=== PATIENT | female | born 1960 | race Caucasian/White ===

== ENCOUNTER 2016-12-23 21:09 | Emergency (ER) | payer SELFPAY ==
[2016-12-23 21:17] VITALS: TEMP 97.6; BMI 27.4
--- NOTE | 2016-12-23 21:30 | PDOC ---
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 Patient states she has left-sided residual weakness from her previous CVA. She reports since 3 days ago she has been feeling progressively weaker, which is worse than her baseline. Patient reports she normally can ambulate, but today she was not able to walk very well and states she was dragging her left leg. No facial droop or slurred speech noted. Denies urinary/bowel incontinence or paresthesias. The patient denies fever, chills, cough, SOB, chest pain, and palpitations. The patient denies abdominal pain, nausea, vomiting, and diarrhea. Allergies: NKDA Social History: No alcohol, tobacco, or drug use reported. Past Surgical History: s/p brain tumor removal (11/2016) PCP: None reported <Susannah Paulson - Last Filed: 12/24/16 01:22> - General History Source: Patient <Asif Noriega - Last Filed: 12/24/16 01:48> - General Chief Complaint: Weakness Stated Complaint: WEAKNESS Time Seen by Provider: 12/23/16 21:27 NIH Stroke Scale - Last Known Well Date/Time & Onset Date Last Known Well: 12/21/16 Time Last Known Well: 06:00 - Initial Evaluation Level of consciousness: Alert Ask patient the month and their age: Answers both correctly Ask patient to open & close eyes; make fist and let go: Obeys both correctly Best gaze (horizontal eye movement): Normal Visual field testing: No visual field loss Facial paresis (Show teeth/raise eyebrows/close eyes tight): Normal symmetrical movement Motor Function: Left Arm: Normal Motor Function: Right Arm: Normal (extends arm 90 (or 45) degrees for 10 seconds without drift Motor Function: Left Leg: Normal (extends leg 30 degrees for 5 seconds without drift) Motor Function: Right Leg: Normal (extends leg 30 degrees for 5 seconds without drift) Limb Ataxia: No ataxia Sensory(Use pinprick test arms,legs,trunk,face/side to side): Normal Best language (Describe picture, name items, read sentences): No Aphasia Dysarthria (read several words): Normal articulation Extinction and Inattention: No abnormality - Total Score NIH Stroke Scale Score: 0 <Asif Noriega - Last Filed: 12/24/16 01:48> Past History <Margarette Paulsonvita - Last Filed: 12/24/16 01:22> - Psycho/Social/Smoking Cessation Hx Suicidal Ideation: No Smoking History: Unknown if ever smoked Have you smoked in the past 12 months: No Information on smoking cessation initiated: No Hx Alcohol Use: No Drug/Substance Use Hx: No <Asif Noriega - Last Filed: 12/24/16 01:48> - Past Medical History Allergies/Adverse Reactions: Allergies Allergy/AdvReac Type Severity Reaction Status Date / Time No Known Allergies Allergy Verified 12/23/16 21:14 Review of Systems - Review of Systems Able to Perform ROS?: Yes Comments:: 12/23/16 21:50 CONSTITUTIONAL: +generalized weakness Absent: fever, chills, diaphoresis, malaise, loss of appetite HEENT: Absent: rhinorrhea, nasal congestion, throat pain, throat swelling, difficulty swallowing, mouth swelling, ear pain, eye pain, visual Changes CARDIOVASCULAR: Absent: chest pain, syncope, palpitations, irregular heart rate, lightheadedness , peripheral edema RESPIRATORY: Absent: cough, shortness of breath, dyspnea with exertion, orthopnea, wheezing, stridor, hemoptysis GASTROINTESTINAL: Absent: abdominal pain, abdominal distension, nausea, vomiting, diarrhea, constipation, melena, hematochezia GENITOURINARY: Absent: dysuria, frequency, urgency, hesitancy, hematuria, flank pain, genital pain MUSCULOSKELETAL: Absent: myalgia, arthralgia, joint swelling SKIN: Absent: rash, itching, pallor HEMATOLOGIC/IMMUNOLOGIC: Absent: easy bleeding, easy bruising, lymphadenopathy, frequent infections ENDOCRINE: Absent: unexplained weight gain, unexplained weight loss, heat intolerance, cold intolerance NEUROLOGIC: +worsening left-sided weakness Absent: headache, focal paresthesias, dizziness, seizure, mental status changes, bladder or bowel incontinence <uSsannah Paulson - Last Filed: 12/24/16 01:22> *Physical Exam - Vital Signs Last Vital Signs Temp Pulse Resp BP Pulse Ox 97.6 F 80 18 143/74 98 12/23/16 21:15 12/23/16 21:15 12/23/16 21:15 12/23/16 21:15 12/23/16 21:15 - Physical Exam Comments: 12/23/16 21:50 GENERAL: Well developed, well nourished. Awake and alert. No acute distress. HEENT: Normocephalic, atraumatic. PERRLA, EOMI. No conjunctival pallor. Sclera are non- icteric. Moist mucous membranes. Oropharynx is clear. NECK: Supple. Full ROM. No JVD. Carotid pulses 2+ and symmetric, without bruits. No thyromegaly. No lymphadenopathy. CARDIOVASCULAR: Regular rate and rhythm. No murmurs, rubs, or gallops. Distal pulses are 2+ and symmetric. PULMONARY: No evidence of respiratory distress. Lungs clear to auscultation bilaterally. No wheezing, rales or rhonchi. ABDOMINAL: Soft. Non-tender. Non-distended. No rebound or guarding. No organomegaly. Normoactive bowel sounds. MUSCULOSKELETAL Normal range of motion at all joints. No bony deformities or tenderness. No CVA tenderness. EXTREMITIES: No cyanosis. No clubbing. No edema. No calf tenderness. SKIN: Warm and dry. Normal capillary refill. No rashes. No jaundice. NEUROLOGICAL: Alert, awake, oriented. Answering questions appropriately. Sensation intact throughout. 4/5 motor strength left upper extremity. 3/5 motor strength left lower extremity. 5/5 motor strength right upper and lower extremities. No facial droop. Normal speech. <Susannah Paulson - Last Filed: 12/24/16 01:22> - Vital Signs Last Vital Signs Temp Pulse Resp BP Pulse Ox 97.6 F 80 18 143/74 98 12/23/16 21:15 12/23/16 21:15 12/23/16 21:15 12/23/16 21:15 12/23/16 21:15 <Asif Noriega - Last Filed: 12/24/16 01:48> Heart Score/ECG Review - ECG Impressions Comment:: 12/23/16 23:26 NSR @61bpm Normal ECG <Susannah Paulson - Last Filed: 12/24/16 01:22> ED Treatment Course - LABORATORY CBC & Chemistry Diagram: 12/23/16 22:33 12/23/16 22:33 - RADIOLOGY Radiograph Interpretation: 12/24/16 01:13 EXAM: CT brain without contrast Reviewed by Imaging neon installer: FINDINGS: Patient has had a right frontal craniotomy. There is a large amount of vasogenic edema involving portions of the right frontal and parietal lobes. This is most likely from an underlying neoplasm (this may have been the reason for the craniotomy). The extensive edema causes mass effect and result in a soft ball seen shift to the left of approximately 6 mm. There are one or 2 tiny hyperdensities within the mass. Difficult to determine if this represents compressed cortex or tiny foci of tumoral hemorrhage. I do not have prior scans and therefore I cannot determine whether the edema is stable. If prior scans can be transmitted, I can perform a comparative interpretation. Osseous structures are intact <Susannah Paulson - Last Filed: 12/24/16 01:22> - LABORATORY CBC & Chemistry Diagram: 12/23/16 22:33 12/23/16 22:33 <Asif Noriega - Last Filed: 12/24/16 01:48> Medical Decision Making - Medical Decision Making 12/24/16 00:57 Reassessment: Patient reports she is visiting the [facility] from [facility] and was recently in [facility] visiting some family. At that time, she developed a CVA on November 15, 2016. It was then discovered that the pt had two tumors that were surgically removed on November 19, 2016. Patient was discharge on November 24, 2016. Subsequently, patients daughter picked her up and brought her to [place]. Thus far, she does not know pathology of the tumor. Daughter, at bedside, states she recently received a email with an attachment with all of the information regarding her stay at the hospital in [facility], which possibly includes the pathology of the tumor. Patient states at this point, she has not received any chemotherapy is it is needed. 12/24/16 01:[address] Caesar Jacobs (via [phone]) and patient's case was discussed <Ssuannah Paulson - Last Filed: 12/24/16 01:22> - Medical Decision Making 12/24/16 01:45 Dr. Noriega: The scribe's documentation has been prepared under my direction and personally reviewed by me in its entirery. I confirm that the note above accurately reflects all work, treatment, procedures, and medical decision making performed by me. Pt to be transferred to [facility] neurosurg [facility]. Spoke to Dr. Fuller. Pt accepted by Dr. France. Pt to be transferred to ER. Hemodynamically stable. <Asif Noriega - Last Filed: 12/24/16 01:48> *DC/Admit/Observation/Transfer - Attestations Scribe Attestion: 12/23/16 21:50 Documentation prepared by Susannah Paulson, acting as medical assisting program director for Asif Noriega MD/DO. <Susannah Paulson - Last Filed: 12/24/16 01:22> - Transfer to Acute Care Facility Receiving Facility: [facility] (accepted by Dr. France (neurosurgery)) <Asif Noriega - Last Filed: 12/24/16 01:48> Diagnosis at time of Disposition: Vasogenic brain edema, History of craniotomy, Weakness - Discharge Dispostion Condition at time of disposition: Stable - Patient Instructions Printed Discharge Instructions: DI for Craniotomy
[2016-12-23 22:38] LABS: BASOPHIL 1.1 % (0-2.0); EOSINOPHIL 0.8 % (0-4.5); MCH 29.4 pg (25.7-33.7); MCHC 33.3 g/dl (32.0-36.0); MEAN CELL VOLUME 88.3 fl (80-96); MEAN PLT VOLUME 7.7 fl (7.5-11.1); PLATELET COUNT 323 K/MM3 (134-434); RDW 14.4 % (11.6-15.6); WHITE BLOOD COUNT 7.1 K/mm3 (4.0-10.0)
[2016-12-23] MEDS ORDERED: ACETAMINOPHEN 325 MG TABLET (FP) PO ONE (22:43)
[2016-12-23 22:51] LABS: INR 0.95 (0.82-1.09); PROTHROMBIN TIME (PATIENT) 10.4 SEC (9.98-11.88)
[2016-12-23] MEDS ORDERED: ACETAMINOPHEN 325 MG TABLET (FP) ONE (22:57)
[2016-12-23 23:01] LABS: ALBUMIN 3.4 g/dl (3.4-5.0); ANION GAP 9 (8-16); BILIRUBIN,TOTAL 0.3 mg/dL (0.2-1.0); CO2 27 mmol/L (21-32); CREATININE 0.6 mg/dL (0.55-1.02); GLUCOSE,RANDOM 230 mg/dL (74-106); SGOT/AST 14 U/L (15-37); SGPT/ALT 30 U/L (12-78); TOT PROT 6.7 g/dl (6.4-8.2)
[2016-12-23 23:04] LABS: ALK PHOS 118 U/L (45-117); TROPONIN I < 0.02 ng/ml (0.00-0.05)
[2016-12-23 23:07] LABS: URINE APPEARANCE CLEAR; URINE BILIRUBIN NEGATIVE (NEGATIVE); URINE COLOR LTYELLOW; URINE GLUCOSE (UA) NEGATIVE (NEGATIVE); URINE KETONE NEGATIVE (NEGATIVE); URINE LEUK ESTERASE NEGATIVE (NEGATIVE); URINE NITRITE NEGATIVE (NEGATIVE); URINE PROTEIN NEGATIVE (NEGATIVE); URINE UROBILINOGEN NEGATIVE E.U./dl (0.2-1.0)
[2016-12-23 23:19] LABS: URINE BLOOD 2+ (NEGATIVE)
[2016-12-23 23:21] LABS: URINE MUCUS RARE; URINE RBC 1 /hpf (0-3); URINE WBC 2 /hpf (3-5)
[2016-12-24] MEDS ORDERED: morphine CARPU-JECT 2 MG/1 ML DISP.SYRIN IVPUSH ONE (01:42)
[2016-12-24] MEDS ORDERED: ONDANSETRON 4 MG/2 ML VIAL IVPUSH STA (01:42)
[2016-12-24] MEDS ORDERED: morphine CARPU-JECT 2 MG/1 ML DISP.SYRIN ONE (02:18)
[2016-12-24] MEDS ORDERED: ONDANSETRON 4 MG/2 ML VIAL ONE (02:18)
[2016-12-24 03:51] VITALS: BP 119/70; PULSE 68
--- NOTE | 2016-12-24 12:24 | EKG ---
Test Reason : Blood Pressure : / mmHG Vent. Rate : 060 BPM Atrial Rate : 060 BPM P-R Int : 158 ms QRS Dur : 072 ms QT Int : 438 ms P-R-T Axes : 038 027 025 degrees QTc Int : 438 ms NORMAL SINUS RHYTHM NORMAL ECG NO PREVIOUS ECGS AVAILABLE Confirmed by JORGE PALUMBO MD ([id number]) on 12/24/2016 12:24:47 PM Referred By: Confirmed By:JORGE PALUMBO MD
== END 2016-12-24 03:53 | disposition short-term general hospital (02) ==
LOC: JER 21:09
PROC: 3E033NZ Introduction of Analgesics, Hypnotics, Sedatives into Peripheral Vein, Percutaneous Approach (ICD-10-PCS; principal; 2016-12-23)
PROC: 3E033GC Introduction of Other Therapeutic Substance into Peripheral Vein, Percutaneous Approach (ICD-10-PCS; 2016-12-23)
DX: G93.6 Cerebral edema (principal); I69.854 Hemiplegia and hemiparesis following other cerebrovascular disease affecting left non-dominant side
CPT/HCPCS: 36415; 70450-TC; 71010-TC; 80053; 81003; 81015; 82550; 83735; 83880; 84484; 85025; 85610; 86850; 86900; 86901; 93005; 93010; 99284-25

== ENCOUNTER 2017-03-12 11:31 | Emergency (ER) | payer OTHER ==
[2017-03-12 11:51] VITALS: TEMP 97.8; BMI 30.9
[2017-03-12 12:23] LABS: URINE APPEARANCE CLOUDY; URINE BILIRUBIN NEGATIVE (NEGATIVE); URINE BLOOD 1+ (NEGATIVE); URINE COLOR YELLOW; URINE GLUCOSE (UA) NEGATIVE (NEGATIVE); URINE KETONE NEGATIVE (NEGATIVE); URINE NITRITE NEGATIVE (NEGATIVE); URINE UROBILINOGEN NEGATIVE mg/dL (0.2-1.0)
[2017-03-12 12:38] LABS: URINE LEUK ESTERASE 3+ (NEGATIVE); URINE PROTEIN 1+ (NEGATIVE)
--- NOTE | 2017-03-12 12:49 | PDOC ---
History of Present Illness - General Chief Complaint: Pain Stated Complaint: ABD PAIN Time Seen by Provider: 03/12/17 11:55 History Source: Patient, Other (daughter) - History of Present Illness Initial Comments: 03/12/17 13:21 56-year-old female presents to the ED with complaints of intermittent hematuria since yesterday. Daughter states had noted mild hematuria in commode last night and then this morning upon changing her diaper. Patient has no complaints of abdominal pain, fever, chills, nausea, vomiting, or change in bowel movement. Patient with history of CVA with left sided paralysis. Patient denies history of recurrent UTI or kidney disorders. Timing/Duration: reports: intermittent Quality: reports: mild, burning Pain Radiation: reports: no radiation Aggravating Factors: improves with: Voiding Alleviating Factors: improves with: None Past History - Past Medical History Allergies/Adverse Reactions: Allergies Allergy/AdvReac Type Severity Reaction Status Date / Time No Known Allergies Allergy Verified 03/12/17 11:51 Home Medications: Ambulatory Orders Aspirin [ASA -] 81 mg PO DAILY 12/24/16 Butalb/Acetaminophen/Caffeine [Lzltgl-Xoodgmdr-Sjhy 50-325-40] 1 each PO Q6H Levetiracetam 500 mg PO Q12H 12/24/16 Dexamethasone [Decadron -] 4 mg PO Q6H 03/12/17 Docusate Sodium [Colace -] 1 tab PO DAILY 03/12/17 Insulin Glargine,Hum.rec.anlog [Basaglar Kwikpen U-100] 36 units SCJ HS Insulin Lispro [Humalog Kwikpen U-100] 12 units SCJ TID 03/12/17 Lisinopril 5 mg PO DAILY 03/12/17 Ondansetron HCl [Zofran] 8 mg PO BID 03/12/17 Pantoprazole Sodium [Protonix] 40 mg PO DAILY 03/12/17 Sennosides [Senna] 1 tab PO HS 03/12/17 Temozolomide [Temodar 140Mg Cap] 140 mg PO DAILY 03/12/17 Timolol 0.5% [Timoptic 0.5%] 1 drop OU BID 03/12/17 Anemia: No Asthma: No Cancer: Yes (glioblastyoma) Cardiac Disorders: No CVA: Yes (November 15, 2016) COPD: No DVT: No Dementia: No Diabetes: Yes Dialysis: No GI Disorders: No Disorders: No HTN: Yes Hypercholesterolemia: No HIV: No Kidney Stones: No Liver Disease: No Psychiatric Problems: No Seizures: No Thyroid Disease: No Lung CA: No Other medical history: glioblastoma with chemo and radiation - Surgical History Abdominal Surgery: No Appendectomy: No Cardiac Surgery: No Cholecystectomy: No Gastric Stapling: No GI Surgery: No Lung Surgery: No Neurologic Surgery: No - Psycho/Social/Smoking Cessation Hx Anxiety: No Suicidal Ideation: No Smoking History: Unknown if ever smoked Have you smoked in the past 12 months: No Hx Alcohol Use: No Drug/Substance Use Hx: No Substance Use Type: None Patient Lives Alone: No Lives with/in: daughter Review of Systems - Review of Systems Able to Perform ROS?: Yes Constitutional: No: Symptoms Reported HEENTM: No: Symptoms Reported Respiratory: No: Symptoms reported Cardiac (ROS): No: Symptoms Reported ABD/GI: No: Symptoms Reported : Yes: Burning, Hematuria Musculoskeletal: No: Symptoms Reported Integumentary: No: Symptoms Reported Neurological: No: Symptoms reported Endocrine: No: Symptoms Reported Hematologic/Lymphatic: No: Symptoms Reported *Physical Exam - Vital Signs Last Vital Signs Temp Pulse Resp BP Pulse Ox 97.8 F 89 112/78 98 03/12/17 11:35 03/12/17 11:35 03/12/17 11:35 03/12/17 11:56 - Physical Exam General Appearance: Yes: Nourished, Appropriately Dressed. No: Apparent Distress HEENT: negative: Pale Conjunctivae Respiratory/Chest: positive: Lungs Clear, Normal Breath Sounds. negative: Respiratory Distress, Accessory Muscle Use Cardiovascular: positive: Regular Rhythm, Regular Rate. negative: Murmur Gastrointestinal/Abdominal: positive: Soft. negative: Tenderness Musculoskeletal: negative: CVA Tenderness Extremity: positive: Normal Capillary Refill. negative: Pedal Edema Integumentary: positive: Normal Color, Warm, Moist Neurologic: positive: Normal Mood/Affect. negative: Motor Strength 5/5 (lt sided paralysis) Heart Score/ECG Review - ECG Intrepretation Rhythm: Regular Rhythm (rate 86. no acute findings) ED Treatment Course - LABORATORY CBC & Chemistry Diagram: 03/12/17 12:37 03/12/17 12:37 Medical Decision Making - Medical Decision Making 03/12/17 13:29 Patient here for evaluation of hematuria 2. Patient upon my arrival had clear yellow urine in the bedpan. Patient on exam had no acute findings. Patient states notified patient case manager here in the ER, Raeann secondary to go home care services and patient with left sided paralysis. 03/12/17 14:36 Laboratory Tests 03/12/17 03/12/17 03/12/17 12:05 12:37 12:37 WBC 12.3 H D Hgb 15.5 H D Hct 46.1 H RDW 16.4 H D Plt Count 217 D MPV 6.7 L D Sodium 131 L Potassium 4.7 Chloride 92 L D Carbon Dioxide 27 Anion Gap 12 BUN 30 H D Random Glucose 250 H Calcium 9.1 Total Bilirubin 0.4 D AST 12 L Alkaline Phosphatase 151 H D Total Protein 6.1 L Albumin 2.8 L Urine Protein 1+ H Urine Blood 1+ H Urine Nitrite Negative Ur Leukocyte Esterase 3+ H Urine WBC 186 Patient ordered for 1 g of ceftriaxone. No previous urine culture on file. Patient also ordered for 1 L of normal saline. Patient be discharged home with home care services as per Raeann along with prescription for Macrobid. 03/12/17 14:37 *DC/Admit/Observation/Transfer Diagnosis at time of Disposition: Urinary tract infection Qualifiers: Urinary tract infection type: acute cystitis - Discharge Dispostion Disposition: HOME Condition at time of disposition: Good - Referrals Referrals: STAFF,NOT ON [Primary Care Provider] - - Patient Instructions Printed Discharge Instructions: DI for Urinary Tract Infection (UTI) Additional Instructions: Please start Macrobid tomorrow since your given your first dose of antibiotics here in the ER. Increased patient's water intake and follow-up with her PCP as needed . otherwise return to ED if symptoms worsen.
[2017-03-12 12:55] LABS: MCH 30.3 pg (25.7-33.7); MCHC 33.6 g/dl (32.0-36.0); MEAN CELL VOLUME 90.2 fl (80-96); MEAN PLT VOLUME 6.7 fl (7.5-11.1); PLATELET COUNT 217 K/MM3 (134-434); RDW 16.4 % (11.6-15.6); WHITE BLOOD COUNT 12.3 K/mm3 (4.0-10.0)
[2017-03-12 12:58] LABS: URINE MUCUS RARE; URINE RBC 1 /hpf (0-3); URINE WBC 186 /hpf (3-5); YEAST RARE
[2017-03-12] MEDS ORDERED: CEFTRIAXONE 1 GM in DEXTROSE 5%-WATER - 50 ML IVPB ONE (13:22)
[2017-03-12] MEDS ORDERED: CEFTRIAXONE 50 ML ONE (13:33)
[2017-03-12 13:44] LABS: ALBUMIN 2.8 g/dl (3.4-5.0); ALK PHOS 151 U/L (45-117); ANION GAP 12 (8-16); BILIRUBIN,TOTAL 0.4 mg/dL (0.2-1.0); CALCIUM 9.1 mg/dL (8.5-10.1); CO2 27 mmol/L (21-32); CREATININE 0.6 mg/dL (0.55-1.02); GLUCOSE,RANDOM 250 mg/dL (74-106); SGOT/AST 12 U/L (15-37); SGPT/ALT 43 U/L (12-78); TOT PROT 6.1 g/dl (6.4-8.2)
[2017-03-12 13:52] LABS: MYELOCYTE 2 % (0-2); PLATELET ESTIMATE ADEQUATE (NORMAL); TOTAL CELLS COUNTED 100
[2017-03-12] MEDS ORDERED: SODIUM CHLORIDE 1,000 ML IV STA (13:53)
[2017-03-12 14:55] VITALS: BP 95/53; PULSE 79
--- NOTE | 2017-03-13 09:26 | EKG ---
Test Reason : Blood Pressure : / mmHG Vent. Rate : 086 BPM Atrial Rate : 086 BPM P-R Int : 136 ms QRS Dur : 076 ms QT Int : 372 ms P-R-T Axes : 000 027 033 degrees QTc Int : 445 ms NORMAL SINUS RHYTHM NORMAL ECG WHEN COMPARED WITH ECG OF 23-DEC-2016 23:14, NO SIGNIFICANT CHANGE WAS FOUND Confirmed by MD OPAL, ADAL ([id number]) on 03/13/2017 9:26:20 AM Referred By: Confirmed By:ADAL JOSEPH MD
--- NOTE | 2017-03-14 11:23 | PDOC ---
Patient Follow-up (Call Back) - Post ED Follow - Up Condition at time of discharge: Good Disposition at time of original discharge: HOME Reason for Call Back: Abnwl. Microbiology (proteus on ucx, pansensitive expect to macrobid which pt is on. Can get keflex, fluroquinolone or bactrim Called at [phone] and unable to leave message Form left in call back in progress folder for pt to be recalled tomorrow)
== END 2017-03-12 17:55 | disposition home or self-care (01) ==
LOC: JER 11:31
PROC: 3E0337Z Introduction of Electrolytic and Water Balance Substance into Peripheral Vein, Percutaneous Approach (ICD-10-PCS; principal; 2017-03-12)
PROC: 3E03329 Introduction of Other Anti-infective into Peripheral Vein, Percutaneous Approach (ICD-10-PCS; 2017-03-12)
DX: N30.01 Acute cystitis with hematuria (principal); B96.4 Proteus (mirabilis) (morganii) as the cause of diseases classified elsewhere; E11.9 Type 2 diabetes mellitus without complications; Z79.4 Long term (current) use of insulin; I10 Essential (primary) hypertension
CPT/HCPCS: 36415; 80053; 81003; 81015; 85025; 87086; 87186; 93005; 93010; 96361; 96365; 99283-25

== ENCOUNTER 2017-03-31 22:52 | Inpatient (IN) | payer OTHER ==
--- NOTE | 2017-03-31 23:20 | PDOC ---
History of Present Illness - General History Source: Patient Exam Limitations: No Limitations - History of Present Illness Initial Comments: 03/31/17 23:47 The patient is a 56 year old female with significant past medical history of brain ca stage 4 s/p chemo and radiology treatment, IDDM and CVA x3 with mild left-sided residual weakness who presents to the ED for chest pain, hyperglycemia and SOB. As per daughter, the patient developed right hand numbness followed by chest pain, nonpleuritic, non reproducible with no alleviating, exacerbating factors, later this evening at 5 PM with associated SOB. Daughter notes that her blood sugar measured high today. As per daughter, she started her first dose of dilaudid today and she notes that her symptoms evolved shortly after taking the medication. The patient denies fever, chills, cough and palpitations. The patient denies abdominal pain, nausea, vomiting, and diarrhea. She denies any bowel incontinence, visual changes or urinary symptoms. Allergies: NKDA Social History: No alcohol, tobacco, or drug use reported. Past Surgical History: s/p brain tumor removal (11/2016) PCP: None reported <Martina Davenport - Last Filed: 04/01/17 00:28> - General History Source: Patient Exam Limitations: No Limitations <Jayashree Alonzo - Last Filed: 04/13/17 07:50> - General Chief Complaint: Blood Sugar Problem Stated Complaint: SOB/HYPERGLYCEMIC Time Seen by Provider: 03/31/17 23:17 Past History <Martina Davenport - Last Filed: 04/01/17 00:28> - Past Medical History Anemia: No Asthma: No Cancer: Yes (glioblastyoma) Cardiac Disorders: No CVA: Yes (November 15, 2016) COPD: No DVT: No Dementia: No Diabetes: Yes Dialysis: No GI Disorders: No Disorders: No HTN: Yes Hypercholesterolemia: No Kidney Stones: No Liver Disease: No Psychiatric Problems: No Seizures: No Thyroid Disease: No Lung CA: No - Surgical History Abdominal Surgery: No Appendectomy: No Cardiac Surgery: No Cholecystectomy: No Gastric Stapling: No GI Surgery: No Lung Surgery: No Neurologic Surgery: No - Suicide/Smoking/Psychosocial Hx Smoking History: Unknown if ever smoked Have you smoked in the past 12 months: No Hx Alcohol Use: No Drug/Substance Use Hx: No Substance Use Type: None <Jayashree Alonzo - Last Filed: 04/13/17 07:50> - Past Medical History Allergies/Adverse Reactions: Allergies Allergy/AdvReac Type Severity Reaction Status Date / Time No Known Allergies Allergy Verified 03/31/17 23:19 Home Medications: Ambulatory Orders Aspirin [ASA -] 81 mg PO DAILY 12/24/16 Butalb/Acetaminophen/Caffeine [Yhhkpt-Idggnevx-Wufg 50-325-40] 1 each PO Q6H Levetiracetam 500 mg PO Q12H 12/24/16 Dexamethasone [Decadron -] 4 mg PO Q8H 03/12/17 Docusate Sodium [Colace -] 2 tab PO HS 03/12/17 Insulin Glargine,Hum.rec.anlog [Basaglar Kwikpen U-100] 36 units SCJ HS Insulin Lispro [Humalog Kwikpen U-100] 12 units SCJ TID 03/12/17 Lisinopril 5 mg PO DAILY 03/12/17 Ondansetron HCl [Zofran] 8 mg PO BID 03/12/17 Pantoprazole Sodium [Protonix] 40 mg PO DAILY 03/12/17 Sennosides [Senna] 1 tab PO HS 03/12/17 Temozolomide [Temodar (Nf) -] 140 mg PO DAILY 03/12/17 Timolol 0.5% [Timoptic 0.5%] 1 drop OU BID 03/12/17 Hydromorphone [Dilaudid -] 1 - 2 tab PO Q6H PRN 04/01/17 Oxycodone HCl/Acetaminophen [Percocet 5-325 mg Tablet] 1 tab PO Q6H PRN Review of Systems - Review of Systems Able to Perform ROS?: Yes Comments:: 03/31/17 23:48 GENERAL/CONSTITUTIONAL: No: fever, chills, weakness, loss of appetite. HEAD, EYES, EARS, NOSE AND THROAT: No: change in vision, ear pain, discharge, sore throat, throat swelling. CARDIOVASCULAR: +chest pain. No: lightheadedness, palpitations, syncope RESPIRATORY: +sob No: cough, wheezing, hemoptysis, stridor. GASTROINTESTINAL: No: nausea, vomiting, abdominal cramping, diarrhea, rectal bleeding, constipation. GENITOURINARY: No: dysuria, hematuria, frequency, urgency, flank pain. MUSCULOSKELETAL: No: back pain, neck pain, joint pain, muscle swelling or pain SKIN: No: lesions, pallor, rash or easy bruising. NEUROLOGIC: No: headache, vertigo, paresthesias, weakness ENDOCRINE: No: unexplained weight gain or loss HEMATOLOGIC/LYMPHATIC: No: anemia, easy bleeding, swelling nodes <Martina Davenport - Last Filed: 04/01/17 00:28> *Physical Exam - Vital Signs Last Vital Signs Temp Pulse Resp BP Pulse Ox 98.1 F 95 H 14 109/78 96 03/31/17 23:19 03/31/17 23:19 03/31/17 23:19 03/31/17 23:19 03/31/17 23:19 - Physical Exam Comments: 03/31/17 23:49 GENERAL: +Patient calm, no respiratory distress, +huerta facies. The patient is in no acute distress. HEAD: Normal with no signs of trauma. EYES: PERRLA, EOMI, sclera anicteric, conjunctiva clear. ENT: Ears normal, nares patent, oropharynx clear without exudates. Moist mucous membranes. NECK: Normal range of motion, supple without lymphadenopathy, JVD, or masses. LUNGS: Breath sounds equal, clear to auscultation bilaterally. No wheezes, and no crackles. CHEST: No tenderness to palpitations over the chest. HEART:Regular rate and rhythm, normal S1 and S2 without murmur, rub or gallop. ABDOMEN: Soft, nontender, normoactive bowel sounds. No guarding, no rebound. EXTREMITIES: Normal range of motion, no edema. No clubbing or cyanosis. No erythema, or tenderness. NEUROLOGICAL: Cranial nerves II through XII grossly intact. Normal speech. No focal neurological deficits. MUSCULOSKELETAL: Back nontender to palpation, no CVA tenderness SKIN: Warm, Dry, normal turgor, no rashes or lesions noted. <Martina Davenport - Last Filed: 04/01/17 00:28> Heart Score/ECG Review #1 04/01/17 00:28 Normal sinus rhythm at 97 bpm Cannot rule out anterior infarct, age undetermined Abnormal ECG <Martina Davenport - Last Filed: 04/01/17 00:28> ED Treatment Course - LABORATORY CBC & Chemistry Diagram: 04/05/17 06:20 04/03/17 05:30 <Jayashree Alonzo - Last Filed: 04/13/17 07:50> Medical Decision Making - Medical Decision Making 03/31/17 23:19 A portion of this note was documented by scribe services under my direction. I have reviewed the details of the note, within reason, and agree with the documentation with the following case summary and management plan written by me. Nursing documentation reviewed and incorporated into medical decision making 03/31/17 23:53 This is a 56 yo F with a history of glioblastoma s/p surgical resection, chemotherapy and XRT Pt presents to the ER via EMS with daughter due to 1) hyperglycemia 2) shortness of breath and left chest pain Pt has had chronic pain for which she was given Dilaudid Pt took this medication but states that it did not help her pain Pt has been compliant with her medications Blood glucose elevated 04/01/17 00:04 Pending labs Pending CTA chest Pending Head CT IV hydration prior to blood glucose and Acetone My need Lantus and Insulin Pt signed out to Dr Olsen <Jayashree Alonzo - Last Filed: 04/13/17 07:50> *DC/Admit/Observation/Transfer - Attestations Scribe Attestion: 03/31/17 23:50 Documentation prepared by NICOLLE Strickland, acting as medical field representative for Jayashree Alonzo MD. <Martina Davenport - Last Filed: 04/01/17 00:28> <Jayashree Alonzo - Last Filed: 04/13/17 07:50> Diagnosis at time of Disposition: Weakness, History of craniotomy, Vasogenic brain edema, Elevated troponin - Discharge Dispostion Disposition: HOME Condition at time of disposition: Stable
[2017-03-31] MEDS ORDERED: SODIUM CHLORIDE 1,000 ML IV SCH (23:45)
[2017-04-01 01:04] LABS: MCH 30.8 pg (25.7-33.7); MCHC 33.7 g/dl (32.0-36.0); MEAN CELL VOLUME 91.3 fl (80-96); MEAN PLT VOLUME 7.3 fl (7.5-11.1); NEUTROPHILS 82.9 % (42.8-82.8); PLATELET COUNT 286 K/MM3 (134-434)
[2017-04-01 01:29] LABS: ACETONE SERUM NEGATIVE (NEGATIVE)
[2017-04-01 01:30] LABS: ALBUMIN 2.9 g/dl (3.4-5.0); ANION GAP 14 (8-16); BILIRUBIN,TOTAL 0.4 mg/dL (0.2-1.0); CALCIUM 8.8 mg/dL (8.5-10.1); CO2 23 mmol/L (21-32); CREATININE 0.7 mg/dL (0.55-1.02); SGOT/AST 164 U/L (15-37); SGPT/ALT 162 U/L (12-78); TOT PROT 6.2 g/dl (6.4-8.2)
[2017-04-01 01:32] LABS: ALK PHOS 244 U/L (45-117); CPK 82 IU/L (26-192); TROPONIN I 0.07 ng/ml (0.00-0.05)
[2017-04-01 01:34] LABS: GLUCOSE,RANDOM 455 mg/dL (74-106)
--- NOTE | 2017-04-01 03:30 | PDOC ---
*Physical Exam - Vital Signs Last Vital Signs Temp Pulse Resp BP Pulse Ox 98.1 F 95 H 14 109/78 96 03/31/17 23:19 03/31/17 23:19 03/31/17 23:19 03/31/17 23:19 03/31/17 23:19 <EthelMartina - Last Filed: 04/01/17 03:32> - Vital Signs Last Vital Signs Temp Pulse Resp BP Pulse Ox 98.1 F 95 H 14 109/78 96 03/31/17 23:19 03/31/17 23:19 03/31/17 23:19 03/31/17 23:19 03/31/17 23:19 - Physical Exam General Appearance: Yes: Appropriately Dressed <Asif Noriega - Last Filed: 04/01/17 03:38> ED Treatment Course - LABORATORY CBC & Chemistry Diagram: 04/01/17 00:36 04/01/17 00:36 - ADDITIONAL ORDERS Additional order review: Laboratory Results 04/01/17 04/01/17 00:36 00:33 Sodium 128 L Potassium 5.0 Chloride 91 L Carbon Dioxide 23 Anion Gap 14 BUN 29 H Creatinine 0.7 Creat Clearance w eGFR > 60 POC Glucometer > 400 Random Glucose 455 H* D Calcium 8.8 Total Bilirubin 0.4 AST 164 H D ALT 162 H D Alkaline Phosphatase 244 H D Creatine Kinase 82 Troponin I 0.07 H Total Protein 6.2 L Albumin 2.9 L Acetone, Qual Negative L 04/01/17 04/01/17 00:36 00:33 RBC 4.80 MCV 91.3 MCHC 33.7 RDW 16.0 H MPV 7.3 L Neutrophils % 82.9 H D Lymphocytes % 10.3 D Monocytes % 5.8 Eosinophils % 0.0 D Basophils % 1.0 POC Glucometer > 400 - RADIOLOGY Radiology Studies Ordered: 04/01/17 03:31 THIS IS A PRELIMINARY REPORT FROM [facility] DATE OF SERVICE: 2017-04-01 02:35:00 IMAGES: [id number] EXAM: CT HEAD without contrast HISTORY:Right arm weakness. Rule out brain cancer. COMPARISON: None. FINDINGS:Status post high right parietal craniotomy. There is edema extending from the surgical site to be posterior aspect of the corpus callosum, highly suspicious for residual neoplasm. Vague densities may represent calcifications or punctate hemorrhage but there is no mass effect. The ventricular system is midline and nondilated. The sulcal pattern is normal for the patient's age. There is no extra-axial fluid collection or mass effect. No skull fracture or skull lesion is identified. The visualized paranasal sinuses and mastoid air cells are clear. IMPRESSION: Suspected residual right parietal mass extending to the corpus callosum possible punctate hemorrhage which can be further evaluated with enhanced MRI. THIS DOCUMENT HAS BEEN ELECTRONICALLY SIGNED Aden Domingo MD 04/01/17 03:32 THIS IS A PRELIMINARY REPORT FROM [facility] DATE OF SERVICE: 2017-04-01 02:56:24 IMAGES: [id number] EXAM: CTA CHEST HISTORY:Left-sided pain. Rule out PE. COMPARISON: None. FINDINGS:There is no PE or dissection. Heart size is normal. The trachea and bronchi are patent. There is no pleural or pericardial effusion. The lungs are clear. No fractures identified. The upper abdominal structures are notable for gallstones and sludge without gallbladder inflammation.. IMPRESSION: No acute pathology. THIS DOCUMENT HAS BEEN ELECTRONICALLY SIGNED Aden oDmingo MD <Martina Davenport - Last Filed: 04/01/17 03:32> - LABORATORY CBC & Chemistry Diagram: 04/01/17 00:36 04/01/17 00:36 - ADDITIONAL ORDERS Additional order review: Laboratory Results 04/01/17 04/01/17 00:36 00:33 Sodium 128 L Potassium 5.0 Chloride 91 L Carbon Dioxide 23 Anion Gap 14 BUN 29 H Creatinine 0.7 Creat Clearance w eGFR > 60 POC Glucometer > 400 Random Glucose 455 H* D Calcium 8.8 Total Bilirubin 0.4 AST 164 H D ALT 162 H D Alkaline Phosphatase 244 H D Creatine Kinase 82 Troponin I 0.07 H Total Protein 6.2 L Albumin 2.9 L Acetone, Qual Negative L 04/01/17 04/01/17 00:36 00:33 RBC 4.80 MCV 91.3 MCHC 33.7 RDW 16.0 H MPV 7.3 L Neutrophils % 82.9 H D Lymphocytes % 10.3 D Monocytes % 5.8 Eosinophils % 0.0 D Basophils % 1.0 POC Glucometer > 400 <Asif Noriega - Last Filed: 04/01/17 03:38> *DC/Admit/Observation/Transfer <Martina Davenport - Last Filed: 04/01/17 03:32> - Discharge Dispostion Admit: Yes <Asif Noriega - Last Filed: 04/01/17 03:38> Diagnosis at time of Disposition: Weakness, History of craniotomy, Vasogenic brain edema, Elevated troponin level - Discharge Dispostion Condition at time of disposition: Stable
[2017-04-01] MEDS ORDERED: INSULIN REGULAR HUMAN 100 UNITS/ML *VIAL IVPUSH ONE (03:42)
--- NOTE | 2017-04-01 04:56 | HP ---
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 Patient is a poor historian has a history of dementia and is uruguayan speaking only. History taken from daughter. As per daughter, the patirnt had chest pain with associated shortness of breath and right hand numbness. The patient was given a dose of dilaudid today for the first time and the patient told her daughter she started having chest pain and shortness of breath with numbness. The daughter believes her mother had a " panic attack." Patient is also prescribed methadone for chronic pain but daughter states it was never filled and they never gave it to her. Per the daughter the patient's symptoms have been relieved at this time. Daughter states that her blood sugar measured high today. Daughter endorses her mother has been "eating everything" and she is also on decadron and her blood glucose has not been well controlled. The daughter endorses polyuria as well. The patient denies nausea vomiting fever, chills, cough and palpitations. She denies abdominal pain or diarrhea. She endorses a history of constipation. 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 - Past Surgical History Additional Past Surgical History: right frontal craniotomy - Smoking History Smoking history: Never smoked Have you smoked in the past 12 months: No - Alcohol/Substance Use Hx Alcohol Use: No Home Medications - Allergies Allergies/Adverse Reactions: Allergies Allergy/AdvReac Type Severity Reaction Status Date / Time No Known Allergies Allergy Verified 03/31/17 23:19 - Home Medications Home Medications: Ambulatory Orders Aspirin [ASA -] 81 mg PO DAILY 12/24/16 Butalb/Acetaminophen/Caffeine [Iajdwu-Hxbnwtbp-Vbuq 50-325-40] 1 each PO Q6H Levetiracetam 500 mg PO Q12H 12/24/16 Dexamethasone [Decadron -] 4 mg PO Q8H 03/12/17 Docusate Sodium [Colace -] 2 tab PO HS 03/12/17 Insulin Glargine,Hum.rec.anlog [Basaglar Kwikpen U-100] 36 units SCJ HS Insulin Lispro [Humalog Kwikpen U-100] 12 units SCJ TID 03/12/17 Lisinopril 5 mg PO DAILY 03/12/17 Ondansetron HCl [Zofran] 8 mg PO BID 03/12/17 Pantoprazole Sodium [Protonix] 40 mg PO DAILY 03/12/17 Sennosides [Senna] 1 tab PO HS 03/12/17 Temozolomide [Temodar 140Mg Cap] 140 mg PO DAILY 03/12/17 Timolol 0.5% [Timoptic 0.5%] 1 drop OU BID 03/12/17 Hydromorphone [Dilaudid -] 1 - 2 tab PO Q6H PRN 04/01/17 Methadone [Dolophine -] 1 - 2 tab PO QID 04/01/17 Oxycodone HCl/Acetaminophen [Percocet 5-325 mg Tablet] 1 tab PO Q6H PRN Review of Systems Findings/Remarks: + urinary frequency and polyuria and dysuria chest pain shortness of breath RUE numbness/tingling Physical Examination Vital Signs: Vital Signs Temperature 98.1 F 03/31/17 23:19 Pulse Rate 95 H 03/31/17 23:19 Respiratory Rate 14 03/31/17 23:19 Blood Pressure 109/78 03/31/17 23:19 O2 Sat by Pulse Oximetry (%) 96 03/31/17 23:19 Constitutional: Yes: No Distress, Calm, Obese Eyes: Yes: Conjunctiva Clear HENT: Yes: Atraumatic, Normocephalic, Other (moist mucous membranes) Neck: Yes: Supple, Trachea Midline Cardiovascular: Yes: Regular Rate and Rhythm, S1, S2. No: Murmur Respiratory: Yes: CTA Bilaterally Gastrointestinal: Yes: Normal Bowel Sounds, Soft, Abdomen, Obese. No: Tenderness (Right sided mscles strength 5/5 LUE muscle strength 2/5 LLE muscles strength 2/5 knee jerk reflex 2+ bilaterally biceps jerk reflex 2+ bilaterally) Edema: No Peripheral Pulses WNL: Yes Peripheral Pulses: Left Doralis Pedis: 2+, Right Dorsalis Pedis: 2+ Integumentary: Yes: WNL Neurological: Yes: Alert Psychiatric: Yes: Alert Imaging - Results Chest X-ray: Other (can not review image not uploaded) Cat Scan: Report Reviewed (preliminary reading by lesly hill shows cerebral edema possible recurrence of tumor and possible punctate hemmorhages. Possible unchanged from previous CT head done in december), Other (can not review as image is not uploaded) EKG: Image Reviewed Other: Report Reviewed (CTA chest-could not access images but no Acute process per alan preliminary reading) Assessment/Plan 56F with multiple medical problems presents with chest pain SOB numbness/ tingling and found to have hyperglycemia. Daughter thinks she may have had a panic attack. Problem list Glioblastmoma of brain stage 4-possible recurrence h/o CVAx3 with left sided weakness UTI Hyperglycemia DM HTN pseudohyponatremia Atypical chest pain/troponinemia shortness of breath possible anxiety/panic disorer leukocytosis headaches seizure disorder transamintitis constipation Plan: Admit to inpatient telelmetry cardiac monitoring give ceftriaxone and stop macrobid-previous culture shows resistance trend troponins EKG PRN neurosurgery consult hold chemical DVT PPx and aspirin as possible punctate hemorrhages on head CT Continue GI PPx as patient is on middle or intermediate school principal decadron transamintitis likely from shock liver from hypotnesion check lactic acid sodium corrected [id number] from hyperglycemia check HbA1c redstart home dose of insulin restart decadron hold lisinopril for now while hypotensive IVF f/u final reads of images PT consult lactic acid BNP LFTs trend can consider RUQ US to assess liver contour Full H&P to follow Case discussed with attending Dr. Lowe and admitting internal corrosion specialist Dr. Cervantes Visit type - Emergency Visit Emergency Visit: Yes ED Registration Date: 04/01/17 Care time: The patient presented to the Emergency Department on the above date and was hospitalized for further evaluation of their emergent condition. - New Patient This patient is new to me today: Yes Date on this admission: 04/01/17 - Critical Care Critical Care patient: No
[2017-04-01] MEDS ORDERED: ACETAMINOPHEN 325 MG TABLET (FP) PO PRN (05:24)
--- NOTE | 2017-04-01 05:49 | PN ---
Teaching Attending Note Name of Resident: Harris Molina ATTENDING PHYSICIAN STATEMENT I saw and evaluated the patient. I reviewed the resident's note and discussed the case with the resident. I agree with the resident's findings and plan as documented. SUBJECTIVE: 56 year old female presents to the ED accompanied by family. She complains of onset of shortness of breath and chest pain shortly after administartion of first dose of dilaudid prescribed for pain control . PMH DEmentia Glioblastoma DM HTN CVA x 3 L sided weakness SEizure disorder Home Medication List Medication Instructions Recorded Confirmed Type Aspirin [ASA -] 81 mg PO DAILY 12/24/16 04/01/17 History Butalb/Acetaminophen/Caffeine 1 each PO Q6H 12/24/16 04/01/17 History [Tbkzcy-Vnlysyuj-Pewb 50-325-40] Levetiracetam 500 mg PO Q12H 12/24/16 04/01/17 History Dexamethasone [Decadron -] 4 mg PO Q8H 03/12/17 04/01/17 History Docusate Sodium [Colace -] 2 tab PO HS 03/12/17 04/01/17 History Insulin Glargine,Hum.rec.anlog 36 units SCJ HS 03/12/17 04/01/17 History [Basaglar Kwikpen U-100] Insulin Lispro [Humalog Kwikpen 12 units SCJ TID 03/12/17 04/01/17 History U-100] Lisinopril 5 mg PO DAILY 03/12/17 04/01/17 History Ondansetron HCl [Zofran] 8 mg PO BID 03/12/17 04/01/17 History Pantoprazole Sodium [Protonix] 40 mg PO DAILY 03/12/17 04/01/17 History Sennosides [Senna] 1 tab PO HS 03/12/17 04/01/17 History Temozolomide [Temodar 140Mg Cap] 140 mg PO DAILY 03/12/17 04/01/17 History Timolol 0.5% [Timoptic 0.5%] 1 drop OU BID 03/12/17 04/01/17 History Hydromorphone [Dilaudid -] 1 - 2 tab PO Q6H PRN 04/01/17 04/01/17 History Methadone [Dolophine -] 1 - 2 tab PO QID 04/01/17 04/01/17 History Oxycodone HCl/Acetaminophen 1 tab PO Q6H PRN 04/01/17 04/01/17 History [Percocet 5-325 mg Tablet] Active Medications Generic Name Dose Route Start Last Admin Trade Name Freq PRN Reason Stop Dose Admin Acetaminophen 650 mg 04/01/17 05:24 Tylenol - PO Q4H PRN FEVER OR PAIN Aspirin 81 mg 04/01/17 10:00 Ecotrin - PO DAILY DEBORAH Dexamethasone 4 mg 04/01/17 06:00 Decadron - PO Q6HPO DEBORAH Docusate Sodium 300 mg 04/01/17 22:00 Colace - PO HS DEBORAH Sodium Chloride 1,000 mls @ 100 mls/hr 03/31/17 23:45 04/01/17 00:40 Normal Saline - IV 100 mls/hr ASDIR DEBORAH Administration Insulin Aspart 1 vial 04/01/17 07:00 Novolog Vial Sliding Scale - SQ ACHS DEBORAH Protocol Insulin Aspart 12 units 04/01/17 07:00 Novolog SQ TIDAC DEBORAH Insulin Detemir 36 units 04/01/17 22:00 Levemir Vial SQ HS DEBORAH Levetiracetam 500 mg 04/01/17 10:00 Keppra - PO BID DEBORAH Pantoprazole Sodium 40 mg 04/01/17 10:00 Protonix - PO DAILY DEBORAH Senna 1 tab 04/01/17 22:00 Senna - PO HS DEBORAH Timolol Maleate 1 drop 04/01/17 10:00 Timoptic 0.5% OU BID [facility] OBJECTIVE: Vital Signs Temperature 98.1 F 03/31/17 23:19 Pulse Rate 95 H 03/31/17 23:19 Respiratory Rate 14 03/31/17 23:19 Blood Pressure 109/78 03/31/17 23:19 O2 Sat by Pulse Oximetry (%) 96 03/31/17 23:19 CBC, BMP 04/01/17 00:36 04/01/17 00:36 CT brain FINDINGS:Status post high right parietal craniotomy. There is edema extending from the surgical site to be posterior aspect of the corpus callosum, highly suspicious for residual neoplasm. Vague densities may represent calcifications or punctate hemorrhage but there is no mass effect. The ventricular system is midline and nondilated. The sulcal pattern is normal for the patient's age. There is no extra-axial fluid collection or mass effect. No skull fracture or skull lesion is identified. The visualized paranasal sinuses and mastoid air cells are clear. IMPRESSION: Suspected residual right parietal mass extending to the corpus callosum possible punctate hemorrhage which can be further evaluated with enhanced MRI. ASSESSMENT AND PLAN: 1. Atypical chest pain - now resolved , no EKG changes , troponin is mildly elevated and is likely secondary. Poor candidate for any intervention . - repeat troponin - aspirin on hold due to abnormal CT brain suggestive of punctate hemorrhages 2. HYponatremia - pseudohyponatremia secondary to hyperglycemia - IVF -repeat Na level 3. UTI - treated with PO Macrobid as outpatient , previous cultures show proteus macrobid resistant. - UA stat - Rocephine - UA cultures 4. Uncntrolled DM - partially due to decadrone - reinstate home meds -monitor BG and correct with sliding scale - diabetic diet 5. History of recently diagnosed glioblastoma - s/p sx and XRT - there is an evidence of punctate hemorrhage and possibly residual tumor . No previous CT to compare. Poor prognosis - obtain prior history from [facility] -neurosurgery input is appresiated re use of ASA 6. Poor functional status secondary to chronic hemiparesis - wheelchair bound - PT /OT 7. Seizure disorder - 2/2 #5 - c/w Keppra - prn ativan for breakthrough 8 . Elevated liver enzymes - CTA chest caught GB stones and sludge , asymptomatic, hypotensive on presentation which could cause hypoperfusion - repeat LFT , if increase - US abdomen 9 Leukocytosis - UTI vs decadrone
--- NOTE | 2017-04-01 05:58 | HP ---
CHIEF COMPLAINT: CP, SOB PCP: Mary Nogueira ([facility]) HISTORY OF PRESENT ILLNESS: Pt is a 56y/o F with PMH glioblastoma s/p surg/chemo/radiation who complained of CP, SOB, leg tingling after taking Dilaudid for the first time this afternoon. Pain was dull, nonradiating, associated with breathing, not associated with food. Pt does not engage in any physical activity, so unable to determine association to activity. Pt no longer has any symptoms. When asked about chest pain, patient stated that her bed was uncomfortable, but her chest did not hurt. No other complaints at this time. Denies dizziness, fever, chills , sweating, nausea, vomiting. Pt's daughter also noted that pt's glucose was high today. ER course was notable for: (1)Hyperglycemia (455), leukocytosis (16), hyponatremia (128), transaminitis ( mild), positive Tn (0.07), acetone neg (2) EKG unremarkable for acute event pending official read, CT Head per preliminary reading by alan shows "suspected residual right parietal mass extending to corpus callosum with possible punctate hemorrhage, which can be further evaluated by MRI", CTA per preliminary reading by alan show "no acute pathology" (3)pt received 6 units Ins and 2 L NS Recent Travel: came from [place] in October PAST MEDICAL/SURGICAL HISTORY: Glioblastoma multiforme s/p mult craniotomy s/p radiation and chemo, CVAx3 w/ L residual weakness, dementia, seizures, IDDM, UTI Social History: Smoking: Denies Alcohol: Denies Drugs: Denies Family History: N/a Allergies No Known Allergies Allergy (Verified 03/31/17 23:19) HOME MEDICATIONS: Home Medications Medication Instructions Recorded Aspirin [ASA -] 81 mg PO DAILY 12/24/16 Butalb/Acetaminophen/Caffeine 1 each PO Q6H 12/24/16 [Kadsuc-Hjbanaqr-Ywgx 50-325-40] Levetiracetam 500 mg PO Q12H 12/24/16 Dexamethasone [Decadron -] 4 mg PO Q8H 03/12/17 Docusate Sodium [Colace -] 2 tab PO HS 03/12/17 Insulin Glargine,Hum.rec.anlog 36 units [facility] 03/12/17 [Basaglar Kwikpen U-100] Insulin Lispro [Humalog Kwikpen 12 units SCJ TID 03/12/17 U-100] Lisinopril 5 mg PO DAILY 03/12/17 Ondansetron HCl [Zofran] 8 mg PO BID 03/12/17 Pantoprazole Sodium [Protonix] 40 mg PO DAILY 03/12/17 Sennosides [Senna] 1 tab PO HS 03/12/17 Temozolomide [Temodar 140Mg Cap] 140 mg PO DAILY 03/12/17 Timolol 0.5% [Timoptic 0.5%] 1 drop OU BID 03/12/17 Hydromorphone [Dilaudid -] 1 - 2 tab PO Q6H PRN 04/01/17 Methadone [Dolophine -] 1 - 2 tab PO QID 04/01/17 Oxycodone HCl/Acetaminophen 1 tab PO Q6H PRN 04/01/17 [Percocet 5-325 mg Tablet] REVIEW OF SYSTEMS CONSTITUTIONAL: Absent: fever, chills, diaphoresis, generalized weakness, malaise, loss of appetite, weight change HEENT: Absent: rhinorrhea, nasal congestion, throat pain, throat swelling, difficulty swallowing, mouth swelling, ear pain, eye pain, visual changes CARDIOVASCULAR: chest pain Absent: , syncope, palpitations, irregular heart rate, lightheadedness, peripheral edema RESPIRATORY: shortness of breath Absent: cough, , dyspnea with exertion, orthopnea, wheezing, stridor, hemoptysis GASTROINTESTINAL: Absent: abdominal pain, abdominal distension, nausea, vomiting, diarrhea, constipation, melena, hematochezia GENITOURINARY: Absent: dysuria, frequency, urgency, hesitancy, hematuria, flank pain, genital pain MUSCULOSKELETAL: Absent: myalgia, arthralgia, joint swelling, back pain, neck pain SKIN: Absent: rash, itching, pallor HEMATOLOGIC/IMMUNOLOGIC: Absent: easy bleeding, easy bruising, lymphadenopathy, frequent infections ENDOCRINE: Absent: unexplained weight gain, unexplained weight loss, heat intolerance, cold intolerance NEUROLOGIC: LUE, LLE weakness Absent: headache, or paresthesias, dizziness, unsteady gait, seizure, mental status changes, bladder or bowel incontinence PSYCHIATRIC: Absent: anxiety, depression, suicidal or homicidal ideation, hallucinations. PHYSICAL EXAMINATION GENERAL: Awake, alert, and fully oriented, in no acute distress. HEAD: Normal with no signs of trauma. EYES: Pupils equal, round and reactive to light, extraocular movements intact, sclera anicteric, conjunctiva clear. No lid lag. EARS, NOSE, THROAT: oropharynx clear without exudates. Moist mucous membranes. NECK: Normal range of motion, supple without lymphadenopathy, JVD, or masses. LUNGS: Breath sounds equal, clear to auscultation bilaterally. No wheezes, and no crackles. No accessory muscle use. HEART: distant heart sounds Regular rate and rhythm, normal S1 and S2 without murmur, rub or gallop. ABDOMEN: Soft, nontender, not distended, normoactive bowel sounds, no guarding, no rebound, no masses. No hepatomegaly or splenomegaly. MUSCULOSKELETAL: Normal range of motion at all joints. No bony deformities or tenderness. No CVA tenderness. UPPER EXTREMITIES: 2+ pulses, warm, well-perfused. No cyanosis. No clubbing. No peripheral edema. LOWER EXTREMITIES: 2+ pulses, warm, well-perfused. No calf tenderness. No peripheral edema. NEUROLOGICAL: Cranial nerves II-XII intact. Normal speech. Left sided weakness of upper and lower extremity. Areflexic on left. 2+ reflexes of right biceps and patellar. Sensation intact throughout PSYCHIATRIC: Cooperative. Good eye contact. Appropriate mood and affect. SKIN: Warm, dry, normal turgor, no rashes or lesions noted, normal capillary refill. ASSESSMENT/PLAN: Pt is a 56y/o F with PMH glioblastoma s/p surg/chemo/radiation who complained of CP, SOB, leg tingling after taking Dilaudid for the first time this afternoon. Pt is being admitted for workup of CP/SOB. #atypical CP -symptoms resolved -EKG unremarkable -Tn 007 in ED. Trend -hold ASA in setting of recent craniotomy with possible hemorrhage on head CT -local truck driver #Hyperglycemia/DM -glucose of 455 on admission -acetone neg -Pt got 6 units of Ins in ED -HbA1c -LA -continue home dose of Levemir and Novolog -ISS #UTI -pt has urinary frequency/burning -has been on Nitrofurantoin started outpt previously -Prior UCx was pos for Proteus resistant to Nitrofurantoin -UA, UCx -Rocephin #Pseudohyponatremia -Na of 128, corrected to 134 -unclear etiology -pt on NS -trend Na #SOB -symptoms resolved -PE ruled out by CTA #HTN -holding Lisinopril for now as pt has been hypotensive -NS@100 #Seizure disorder -Last seizure 2 months ago -Levetiracetam #Brain CA -GBM s/p mult craniotomy, chemo, radiation -Head CT showed possible residual R parietal lobe mass and possible punctate hemorrhage on preliminary report -Neurosurg consult -hold ASA -No heparin #Leukocytosis -WBC 16 on admission -pt on decadron -likely 2/2 steroids vs reactive -f/u CBC #Transaminitis -mild -possibly shocked liver 2/2 hypotension -Pt on NS -repeat labs -Consider RUQ US #FEN -NS @ 100 -pseudohyponatremia -DM diet #Dispo -admitted to tele for monitoring in setting of CP/SOB Shubham Cervantes MD PGY-1 case discussed with senior Visit type - Emergency Visit Emergency Visit: Yes ED Registration Date: 04/01/17 Care time: The patient presented to the Emergency Department on the above date and was hospitalized for further evaluation of their emergent condition. - New Patient This patient is new to me today: Yes Date on this admission: 04/01/17 - Critical Care Critical Care patient: No
[2017-04-01] MEDS ORDERED: CEFTRIAXONE 1 GM in DEXTROSE 5%-WATER - 50 ML IVPB ONE (06:12)
[2017-04-01] MEDS: DEXAMETHASONE 4 MG TABLET (FP) PO SCH ×3 (06:33→18:19)
[2017-04-01] MEDS ORDERED: CEFTRIAXONE 50 ML ONE (06:35)
[2017-04-01] MEDS: Insulin (LOG) Aspart 100 UNITS/ML VIAL SQ SCH ×3 (07:20→18:22)
[2017-04-01 07:21] LABS: MCH 30.5 pg (25.7-33.7); MCHC 33.6 g/dl (32.0-36.0); MEAN CELL VOLUME 90.8 fl (80-96); MEAN PLT VOLUME 7.1 fl (7.5-11.1); PLATELET COUNT 252 K/MM3 (134-434); RDW 15.9 % (11.6-15.6); WHITE BLOOD COUNT 16.5 K/mm3 (4.0-10.0)
[2017-04-01] MEDS: INSULIN SLIDING SCALE (NOVOLOG) 1 VIAL SQ SCH ×4 (07:21→22:18)
[2017-04-01 07:34] LABS: INR 0.96 (0.82-1.09); PROTHROMBIN TIME (PATIENT) 10.5 SEC (9.98-11.88)
[2017-04-01 07:37] LABS: ACTIVATED PTT 21.8 SECONDS (26.9-34.4)
[2017-04-01 07:56] LABS: ALBUMIN 2.7 g/dl (3.4-5.0); ANION GAP 10 (8-16); BILIRUBIN,DIRECT 0.1 mg/dL (0.0-0.2); BILIRUBIN,TOTAL 0.4 mg/dL (0.2-1.0); CALCIUM 8.5 mg/dL (8.5-10.1); CHOLESTEROL 274 mg/dL (50-200); CO2 24 mmol/L (21-32); CREATININE 0.5 mg/dL (0.55-1.02); MAGNESIUM 2.1 mg/dL (1.8-2.4); PHOSPHOROUS 3.1 mg/dL (2.5-4.9); SGOT/AST 72 U/L (15-37); SGPT/ALT 140 U/L (12-78); TOT PROT 5.6 g/dl (6.4-8.2)
[2017-04-01 07:58] LABS: ALK PHOS 195 U/L (45-117)
[2017-04-01 08:21] LABS: GLUCOSE,RANDOM 320 mg/dL (74-106)
[2017-04-01] MEDS ORDERED: SODIUM CHLORIDE 1,000 ML IV STA ×2 (08:21→15:26)
[2017-04-01] MEDS ORDERED: ASPIRIN COATED 81 MG TABLET.EC PO SCH (10:00)
[2017-04-01] MEDS: PANTOPRAZOLE 40 MG TABLET (FP) PO SCH (10:30)
[2017-04-01] MEDS: levETIRAcetam 500 MG TABLET (FP) PO SCH ×2 (10:30→22:18)
--- NOTE | 2017-04-01 10:41 | EKG ---
Test Reason : Blood Pressure : / mmHG Vent. Rate : 097 BPM Atrial Rate : 097 BPM P-R Int : 132 ms QRS Dur : 068 ms QT Int : 356 ms P-R-T Axes : 040 020 030 degrees QTc Int : 452 ms NORMAL SINUS RHYTHM CANNOT RULE OUT ANTERIOR INFARCT , AGE UNDETERMINED ABNORMAL ECG WHEN COMPARED WITH ECG OF 12-MAR-2017 11:52, NO SIGNIFICANT CHANGE WAS FOUND Confirmed by JORGE PALUMBO MD ([id number]) on 04/01/2017 10:41:07 AM Referred By: Confirmed By:JORGE PALUMBO MD
[2017-04-01] MEDS: TIMOLOL 0.5% OPHTHALMIC SOL 5 ML BOTTLE OU SCH ×2 (11:00→22:31)
--- NOTE | 2017-04-01 11:18 | CONSULT ---
Consult - text type - Consultation Consultation Note: Asked to see this pleasant 56 year old Slovak speaking female with a recently diagnosed Glioblastoma Multiforme. Patient underwent Right parietal craniotomy at [facility] on November 19, [address] Wolfe. Patient has subsequently receuved chemo and XRT with reported cognitive sequellae. Patient reports a five day history of Left Hemiplegia. Patient presented to [place] ER and noncontrast CT suggested large residual/recurrence. I agree with evaluation with MRI with and without contrast I gave contact information to the patient to share with her daughter. Comparison with preop and immediate post op imaging will be important in surgical decision making.
[2017-04-01] MEDS ORDERED: ACETAMINOPHEN/CAFFEINE/BUTALBITAL 1 TAB PO SCH (13:00)
[2017-04-01 16:43] LABS: URINE APPEARANCE CLEAR; URINE BILIRUBIN NEGATIVE (NEGATIVE); URINE BLOOD 1+ (NEGATIVE); URINE COLOR STRAW; URINE GLUCOSE (UA) NEGATIVE (NEGATIVE); URINE KETONE NEGATIVE (NEGATIVE); URINE NITRITE NEGATIVE (NEGATIVE); URINE PROTEIN NEGATIVE (NEGATIVE); URINE UROBILINOGEN NEGATIVE mg/dL (0.2-1.0)
[2017-04-01 16:47] LABS: URINE LEUK ESTERASE 3+ (NEGATIVE)
[2017-04-01] MEDS: SODIUM CHLORIDE 1,000 ML IV SCH (17:00)
[2017-04-01 17:02] LABS: URINE MUCUS RARE; URINE RBC 6 /hpf (0-3); URINE WBC 86 /hpf (3-5)
--- NOTE | 2017-04-01 17:10 | CON.ID ---
Consult Consult Specialty:: infectious diseases Reason for Consultation:: leukocytosis - History of Present Illness Chief Complaint: weakness History of Present Illness: 56y/o F with PMH glioblastoma s/p surg/chemo/radiation who complained of CP, SOB , leg tingling after taking Dilaudid for the first time this afternoon. Denies dizziness, fever, chills, sweating, nausea, vomiting. patient was seen by neurosurgeon currently patient is having leukocytosis and weakness and is being worked up for that patient has recently received chemo and radiation Patient reports a five day history of Left Hemiplegia. Patient presented to [facility] and noncontrast CT suggested large residual/recurrence. - History Source History Provided By: Medical Record Limitations to Obtaining History: Language Barrier - Past Medical History ...: No - Alcohol/Substance Use Hx Alcohol Use: No - Smoking History Smoking history: Former smoker Have you smoked in the past 12 months: No Home Medications - Allergies Allergies/Adverse Reactions: Allergies Allergy/AdvReac Type Severity Reaction Status Date / Time No Known Allergies Allergy Verified 03/31/17 23:19 - Home Medications Home Medications: Ambulatory Orders Aspirin [ASA -] 81 mg PO DAILY 12/24/16 Butalb/Acetaminophen/Caffeine [Bivxpt-Zjxujkpf-Zons 50-325-40] 1 each PO Q6H Levetiracetam 500 mg PO Q12H 12/24/16 Dexamethasone [Decadron -] 4 mg PO Q8H 03/12/17 Docusate Sodium [Colace -] 2 tab PO HS 03/12/17 Insulin Glargine,Hum.rec.anlog [Basaglar Kwikpen U-100] 36 units SCJ HS Insulin Lispro [Humalog Kwikpen U-100] 12 units SCJ TID 03/12/17 Lisinopril 5 mg PO DAILY 03/12/17 Ondansetron HCl [Zofran] 8 mg PO BID 03/12/17 Pantoprazole Sodium [Protonix] 40 mg PO DAILY 03/12/17 Sennosides [Senna] 1 tab PO HS 03/12/17 Temozolomide [Temodar 140Mg Cap] 140 mg PO DAILY 03/12/17 Timolol 0.5% [Timoptic 0.5%] 1 drop OU BID 03/12/17 Hydromorphone [Dilaudid -] 1 - 2 tab PO Q6H PRN 04/01/17 Methadone [Dolophine -] 1 - 2 tab PO QID 04/01/17 Oxycodone HCl/Acetaminophen [Percocet 5-325 mg Tablet] 1 tab PO Q6H PRN Review of Systems - Review of Systems Constitutional: reports: Lethargy, Weakness Eyes: reports: No Symptoms HENT: reports: No Symptoms Neck: reports: No Symptoms Cardiovascular: reports: No Symptoms Respiratory: reports: No Symptoms Gastrointestinal: reports: No Symptoms Genitourinary: reports: No Symptoms Musculoskeletal: reports: Muscle Weakness, Other Integumentary: reports: No Symptoms Neurological: reports: Other (left sided weakness) Hematology/Lymphatic: reports: No Symptoms Psychiatric: reports: No Symptoms Physical Exam Vital Signs: Vital Signs Temperature 98.2 F 04/01/17 14:56 Pulse Rate 100 H 04/01/17 14:56 Respiratory Rate 18 04/01/17 14:56 Blood Pressure 126/77 04/01/17 14:56 O2 Sat by Pulse Oximetry (%) 97 04/01/17 09:00 Constitutional: Yes: No Distress, Calm Eyes: Yes: Conjunctiva Clear HENT: Yes: Atraumatic Neck: Yes: Supple Cardiovascular: Yes: Regular Rate and Rhythm Respiratory: Yes: Regular, CTA Bilaterally Gastrointestinal: Yes: Normal Bowel Sounds, Soft Musculoskeletal: Yes: Other (left sided weakness) Neurological: Yes: Alert, Other Labs: CBC, BMP 04/01/17 06:40 04/01/17 06:40 Imaging - Results Chest X-ray: Report Reviewed, Image Reviewed Cat Scan: Report Reviewed, Image Reviewed Assessment/Plan looking at the patient and the history and the recurrence of the tumor--this itself could be causing the symptoms and also having new left side weakness also i am worried about uti patient also has high lactic acid r/o uti lt sided weakness dm glioblastoma lactic acidosis plan will start patient on abx monitor wbc await for cx report rest as per primary team
--- NOTE | 2017-04-01 18:28 | PN ---
Physical Exam: SUBJECTIVE: Patient seen and examined at the bedside. She denies any shortness of breath or chest pain. Denies jaw pain or arm pain. OBJECTIVE: Vital Signs Period Temp Pulse Resp BP Sys/Barbosa Pulse Ox Last 24 Hr 97.8 F-98.2 F 71-100 18-22 126-140/77-89 96-97 GENERAL: The patient is awake, alert, in no acute distress. HEAD: Normal with no signs of trauma. EYES: PERRL, extraocular movements intact, sclera anicteric, conjunctiva clear. No ptosis. ENT: Ears normal, nares patent, oropharynx clear without exudates, moist mucous membranes. NECK: Trachea midline, full range of motion, supple. LUNGS: Breath sounds equal, clear to auscultation bilaterally, no wheezes, HEART: Regular rate and rhythm, ABDOMEN: Soft, nontender, nondistended, normoactive bowel sounds, no guarding, no rebound, no hepatosplenomegaly, no masses. NEUROLOGICAL: hx of glioblastoma PSYCH: Normal mood, normal affect. SKIN: Warm, dry, normal turgor, no rashes or lesions noted Laboratory Results - last 24 hr 04/01/17 04/01/17 04/01/17 05:30 06:40 06:40 WBC 16.5 H RBC 4.52 Hgb 13.8 Hct 41.1 MCV 90.8 MCH 30.5 MCHC 33.6 RDW 15.9 H Plt Count 252 MPV 7.1 L PT with INR 10.50 INR 0.96 PTT (Actin FS) 21.8 L Sodium Potassium Chloride Carbon Dioxide Anion Gap BUN Creatinine POC Glucometer Random Glucose Hemoglobin A1c % 11.1 H Lactic Acid Calcium Phosphorus Magnesium Total Bilirubin Direct Bilirubin AST ALT Alkaline Phosphatase Troponin I B-Natriuretic Peptide Total Protein Albumin Triglycerides Cholesterol Total LDL Cholesterol HDL Cholesterol Urine Color Urine Appearance Urine pH Ur Specific [place] Urine Protein Urine Glucose (UA) Urine Ketones Urine Blood Urine Nitrite Urine Bilirubin Urine Urobilinogen Urine RBC Urine WBC Ur Epithelial Cells Urine Mucus 04/01/17 04/01/17 04/01/17 06:40 06:40 06:45 WBC RBC Hgb Hct MCV MCH MCHC RDW Plt Count MPV PT with INR INR PTT (Actin FS) Sodium 129 L Potassium 4.5 Chloride 95 L Carbon Dioxide 24 Anion Gap 10 BUN 22 H D Creatinine 0.5 L D POC Glucometer Random Glucose 320 H* D Hemoglobin A1c % Lactic Acid 2.4 H* Calcium 8.5 Phosphorus 3.1 Magnesium 2.1 Total Bilirubin 0.4 Direct Bilirubin 0.1 AST 72 H D ALT 140 H Alkaline Phosphatase 195 H D Troponin I B-Natriuretic Peptide 365.93 H Cancelled Total Protein 5.6 L Albumin 2.7 L Triglycerides 139 Cancelled Cholesterol 274 H Cancelled Total LDL Cholesterol 145 H Cancelled HDL Cholesterol 102 H Cancelled Urine Color Urine Appearance Urine pH Ur Specific [place] Urine Protein Urine Glucose (UA) Urine Ketones Urine Blood Urine Nitrite Urine Bilirubin Urine Urobilinogen Urine RBC Urine WBC Ur Epithelial Cells Urine Mucus 04/01/17 04/01/17 04/01/17 07:00 10:30 11:49 WBC RBC Hgb Hct MCV MCH MCHC RDW Plt Count MPV PT with INR INR PTT (Actin FS) Sodium Potassium Chloride Carbon Dioxide Anion Gap BUN Creatinine POC Glucometer [phone] Random Glucose Hemoglobin A1c % Lactic Acid Calcium Phosphorus Magnesium Total Bilirubin Direct Bilirubin AST ALT Alkaline Phosphatase Troponin I 0.06 H B-Natriuretic Peptide Total Protein Albumin Triglycerides Cholesterol Total LDL Cholesterol HDL Cholesterol Urine Color Urine Appearance Urine pH Ur Specific [place] Urine Protein Urine Glucose (UA) Urine Ketones Urine Blood Urine Nitrite Urine Bilirubin Urine Urobilinogen Urine RBC Urine WBC Ur Epithelial Cells Urine Mucus 04/01/17 04/01/17 04/01/17 12:50 15:45 16:00 WBC RBC Hgb Hct MCV MCH MCHC RDW Plt Count MPV PT with INR INR PTT (Actin FS) Sodium Potassium Chloride Carbon Dioxide Anion Gap BUN Creatinine POC Glucometer Random Glucose Hemoglobin A1c % Lactic Acid 3.2 H* Calcium Phosphorus Magnesium Total Bilirubin Direct Bilirubin AST ALT Alkaline Phosphatase Troponin I 0.07 H B-Natriuretic Peptide Total Protein Albumin Triglycerides Cholesterol Total LDL Cholesterol HDL Cholesterol Urine Color Straw Urine Appearance Clear Urine pH 6.0 D Ur Specific [place] 1.015 Urine Protein Negative Urine Glucose (UA) Negative Urine Ketones Negative Urine Blood 1+ H Urine Nitrite Negative Urine Bilirubin Negative Urine Urobilinogen Negative Urine RBC 6 Urine WBC 86 Ur Epithelial Cells Rare Urine Mucus Rare 04/01/17 17:09 WBC RBC Hgb Hct MCV MCH MCHC RDW Plt Count MPV PT with INR INR PTT (Actin FS) Sodium Potassium Chloride Carbon Dioxide Anion Gap BUN Creatinine POC Glucometer 137 Random Glucose Hemoglobin A1c % Lactic Acid Calcium Phosphorus Magnesium Total Bilirubin Direct Bilirubin AST ALT Alkaline Phosphatase Troponin I B-Natriuretic Peptide Total Protein Albumin Triglycerides Cholesterol Total LDL Cholesterol HDL Cholesterol Urine Color Urine Appearance Urine pH Ur Specific [place] Urine Protein Urine Glucose (UA) Urine Ketones Urine Blood Urine Nitrite Urine Bilirubin Urine Urobilinogen Urine RBC Urine WBC Ur Epithelial Cells Urine Mucus Active Medications Generic Name Dose Route Start Last Admin Trade Name Freq PRN Reason Stop Dose Admin Acetaminophen 650 mg 04/01/17 05:24 Tylenol - PO Q4H PRN FEVER OR PAIN Atorvastatin Calcium 20 mg 04/01/17 22:00 Lipitor - PO HS DEBORAH Dexamethasone 4 mg 04/01/17 06:00 04/01/17 18:19 Decadron - PO 4 mg Q6HPO DEBORAH Administration Docusate Sodium 300 mg 04/01/17 22:00 Colace - PO HS [facility] Sodium Chloride 1,000 mls @ 100 mls/hr 04/01/17 15:30 04/01/17 17:00 Normal Saline - IV 100 mls/hr ASDIR [facility] Administration Insulin Aspart 1 vial 04/01/17 07:00 04/01/17 18:22 Novolog Vial Sliding Scale - SQ Not Given ACHS [facility] Protocol Insulin Aspart 12 units 04/01/17 07:00 04/01/17 18:22 Novolog SQ Not Given TIDAC [facility] Insulin Detemir 36 units 04/01/17 22:00 Levemir Vial SQ HS [facility] Levetiracetam 500 mg 04/01/17 10:00 04/01/17 10:30 Keppra - PO 500 mg BID DEBORAH Administration Lisinopril 5 mg 04/02/17 10:00 Prinivil PO DAILY [facility] Morphine Sulfate 2 mg 04/01/17 12:51 Morphine Injection - IVPUSH Q4H PRN PAIN Ondansetron HCl 8 mg 04/01/17 22:00 Zofran - PO BID [facility] Pantoprazole Sodium 40 mg 04/01/17 10:00 04/01/17 10:30 Protonix - PO 40 mg DAILY DEBORAH Administration Senna 1 tab 04/01/17 22:00 Senna - PO HS DEBORAH Timolol Maleate 1 drop 04/01/17 10:00 04/01/17 11:00 Timoptic 0.5% OU Not Given BID [facility] ASSESSMENT/PLAN: Patient is a 56 year old with a significant past medical history of recent diagnosis of glioblastoma multiforme s/p surgery (right parietal craniotomy at [facility] November 2016) with chemo and radiation, CVA with left sided paralysis, hyperglycemia and UTI. She presented to the ER on 04/01/2017 for chest pain. As per notes, patient c/o of a dull non radiating left sided chest pain associated with shortness of breath. On exam she denied any further chest pain , shortness of breath, jaw or arm pain. She was also noted by her family to have intermittent hematuria since yesterday. Daughter states had noted mild hematuria in commode last night upon changing her diaper. Imaging: Chest CT w/o contrast: large residual/recurrence with microvascular ischemic changes Cardiology: Chest pain - now resolved A/P: Troponins flat trending No further chest pain or shortness of breath Will monitor on tele, if symptoms persist, consider cardiology consult Vitals stable Oncology/Neurology: A/P: Glioblastoma multiforme s/p surgery (right parietal craniotomy at [facility]) CT head shows large resicual/recurrence On Decadrom 4mg q6, Keppra for seizure prevention MRI of brain with and without contrast ordered Hold ASA until cleared by neurosurgery for microvascular changes seen on CT Wll consult Oncology Neurosurgery following ID: Rule out Sepsis/Persistent Lactic acidosis A/P: WBC elevated, tachycardia, leukocytosis 2.4>3.2 On chronic sterioids, immunocompromised patient Will consult ID for emp. antibiotics Given IVF boluses for persistent lactic acid If lactic acid persists, consider renal consult Trend lactic acid ID consulted Renal Hematuria A/P: urine cultures On Ceftriaxone Monitor cbc Hyperglycemia: A/P: likely secondary to chronic steriods On Levemir and Novolog Monitor F.E.N. NS 100cc/hr Monitor electrolytes Diabetic diet Prophylaxis SCDs, hold anticoag secondary to microvascular changes, on SCDs GI: protonx full code.
[2017-04-01] MEDS ORDERED: VANCOMYCIN 1,250 MG in DEXTROSE 5%-WATER - 250 ML IVPB ONE (19:04)
[2017-04-01] MEDS ORDERED: PT OWN MED DRAWER 7, Y5N ONE (21:57)
[2017-04-01] MEDS ORDERED: ONDANSETRON 4 MG TABLET PO ONE (21:57)
[2017-04-01] MEDS ORDERED: SENNOSIDES 8.6MG TABLET (FP) PO SCH (22:00)
[2017-04-01] MEDS ORDERED: TIMOLOL 0.5% OPHTHALMIC SOL 5 ML BOTTLE OU SCH (22:00)
[2017-04-01] MEDS ORDERED: DOCUSATE SODIUM 100 MG CAPSULE (FP) PO SCH (22:00)
[2017-04-01] MEDS: INSULIN DETEMIR 100 UNITS/ML MDV SQ SCH (22:18)
[2017-04-01] MEDS: SENNOSIDES 8.6MG TABLET (FP) PO SCH (22:18)
[2017-04-01] MEDS: DOCUSATE SODIUM 100 MG CAPSULE (FP) PO SCH (22:18)
[2017-04-01] MEDS: ATORVASTATIN CA 20 MG TABLET (FP) PO SCH (22:18)
[2017-04-01] MEDS: ONDANSETRON 8 MG TABLET (FP) PO SCH (22:31)
[2017-04-02] MEDS: DEXAMETHASONE 4 MG TABLET (FP) PO SCH ×4 (00:25→21:35)
[2017-04-02] MEDS ORDERED: INSULIN (NOVOLOG) ASPART 100 UNITS/ML 10ML VIAL ONE (06:15)
[2017-04-02] MEDS: INSULIN SLIDING SCALE (NOVOLOG) 1 VIAL SQ SCH ×5 (06:44→21:46)
[2017-04-02] MEDS ORDERED: INSULIN (NOVOLOG) ASPART 100 UNITS/ML 10ML VIAL SQ SCH (07:00)
[2017-04-02 07:32] LABS: MCH 30.3 pg (25.7-33.7); MCHC 33.7 g/dl (32.0-36.0); MEAN CELL VOLUME 89.7 fl (80-96); MEAN PLT VOLUME 6.9 fl (7.5-11.1); PLATELET COUNT 257 K/MM3 (134-434); WHITE BLOOD COUNT 14.9 K/mm3 (4.0-10.0)
[2017-04-02 08:16] LABS: METAMYELOCYTE 4 % (0-2); TOTAL CELLS COUNTED 100
[2017-04-02 08:27] LABS: ALBUMIN 2.7 g/dl (3.4-5.0); ANION GAP 11 (8-16); BILIRUBIN,TOTAL 0.6 mg/dL (0.2-1.0); CALCIUM 8.7 mg/dL (8.5-10.1); CO2 26 mmol/L (21-32); CREATININE 0.6 mg/dL (0.55-1.02); GLUCOSE,RANDOM 236 mg/dL (74-106); SGOT/AST 27 U/L (15-37); SGPT/ALT 108 U/L (12-78); TOT PROT 5.7 g/dl (6.4-8.2)
[2017-04-02 08:29] LABS: ALK PHOS 134 U/L (45-117); CPK 57 IU/L (26-192); TROPONIN I 0.04 ng/ml (0.00-0.05)
[2017-04-02] MEDS ORDERED: ONDANSETRON 4 MG TABLET PO ONE ×2 (08:32→21:25)
[2017-04-02] MEDS ORDERED: PANTOPRAZOLE 40 MG TABLET (FP) PO SCH (10:00)
[2017-04-02] MEDS: ONDANSETRON 8 MG TABLET (FP) PO SCH ×2 (10:03→21:51)
[2017-04-02] MEDS: levETIRAcetam 500 MG TABLET (FP) PO SCH ×2 (10:03→21:35)
[2017-04-02] MEDS: LISINOPRIL 5 MG TABLET (FP) PO SCH (10:03)
[2017-04-02] MEDS: PANTOPRAZOLE 40 MG TABLET (FP) PO SCH (10:03)
[2017-04-02] MEDS: TIMOLOL 0.5% OPHTHALMIC SOL 5 ML BOTTLE OU SCH ×2 (11:43→21:35)
[2017-04-02] MEDS: CEFTRIAXONE 2 GM in DEXTROSE 5%-WATER 100 ML IVPB SCH (11:43)
--- NOTE | 2017-04-02 14:21 | CONSULT ---
Consult Consult Specialty:: Oncology - History of Present Illness History of Present Illness: Patient with GBM; Brief EPIC records from [facility]: """MRI 03/18/2017 : 1. Progression of known GBM with enlargement of the mass in the right parietal lobe extending to the corpus callosum and septum pellucidum as well as enlargement of additional sites of disease in the right insula and right frontal operculum. 2. Mild bilateral white matter hyperintensity within the centrum semiovale consistent with posttreatment encephalopathy. 3. Decreased edema within the white matter adjacent to the tumor compared to prior. Oncological Hx: 56 year old with a right parietal GBM, IDH wildtype, MGMT unmethylated, who presents after completing chemoradiation. She completed hypofractionated radiation and Temodar on 02/18. November 2016: diagnosis at [facility] w/ GBM December 2016: Came to [place]. Had new progression, recurrence, underwent surgery. January 2017: Prior to RT, had recurrence underwent a re-resection, then underwent chemo/RT, completed Rx on 21 Mar 2017: New onset weakness, MRI on 03/18, report as above. her neuro-discussed options like avastin, clinical trial and supportive care and explained in detail about the prognosis, Given this, she and her daughter thought she would want to focus on comfort.She was seen by Palliative care at [facility] and was discharged with home-hospice and also steroids were increased""" Presntly, at [facility] she was admitted with UTI. We were consulted for the hx of GBM. Pt seen and examined. Patient's daughter is at bedside. Had a detailed discussion with the daughter - History Source History Provided By: Family Member, Medical Record - Past Medical History ...: No - Alcohol/Substance Use Hx Alcohol Use: No - Smoking History Smoking history: Former smoker Have you smoked in the past 12 months: No Home Medications - Allergies Allergies/Adverse Reactions: Allergies Allergy/AdvReac Type Severity Reaction Status Date / Time No Known Allergies Allergy Verified 03/31/17 23:19 - Home Medications Home Medications: Ambulatory Orders Aspirin [ASA -] 81 mg PO DAILY 12/24/16 Butalb/Acetaminophen/Caffeine [Jitoul-Fklwakwz-Rkxu 50-325-40] 1 each PO Q6H Levetiracetam 500 mg PO Q12H 12/24/16 Dexamethasone [Decadron -] 4 mg PO Q8H 03/12/17 Docusate Sodium [Colace -] 2 tab PO HS 03/12/17 Insulin Glargine,Hum.rec.anlog [Basaglar Kwikpen U-100] 36 units SCJ HS Insulin Lispro [Humalog Kwikpen U-100] 12 units SCJ TID 03/12/17 Lisinopril 5 mg PO DAILY 03/12/17 Ondansetron HCl [Zofran] 8 mg PO BID 03/12/17 Pantoprazole Sodium [Protonix] 40 mg PO DAILY 03/12/17 Sennosides [Senna] 1 tab PO HS 03/12/17 Temozolomide [Temodar 140Mg Cap] 140 mg PO DAILY 03/12/17 Timolol 0.5% [Timoptic 0.5%] 1 drop OU BID 03/12/17 Hydromorphone [Dilaudid -] 1 - 2 tab PO Q6H PRN 04/01/17 Methadone [Dolophine -] 1 - 2 tab PO QID 04/01/17 Oxycodone HCl/Acetaminophen [Percocet 5-325 mg Tablet] 1 tab PO Q6H PRN Physical Exam Vital Signs: Vital Signs Temperature 98.1 F 04/02/17 02:08 Pulse Rate 82 04/02/17 02:08 Respiratory Rate 20 04/02/17 02:08 Blood Pressure 133/81 04/02/17 02:08 O2 Sat by Pulse Oximetry (%) 97 04/01/17 20:51 Constitutional: Yes: Mild Distress, Other ("huerta" face) HENT: Yes: Atraumatic, Normocephalic Neck: Yes: Supple Cardiovascular: Yes: Regular Rate and Rhythm Respiratory: Yes: Regular, CTA Bilaterally Gastrointestinal: Yes: Normal Bowel Sounds, Soft, Abdomen, Obese Edema: No Neurological: Yes: Alert, Oriented, Aphasia ...Motor Strength: WNL (Unable to move the Left Upper and lower extremity) Labs: CBC, BMP 04/02/17 05:35 04/02/17 05:35 Assessment/Plan Recurrent GBM ( s/p surgery/chemo/RT with most recent MRI showing recurrence) UTI Recurrent GBM, most recent MRI with progression, she was placed on home with hospice. I re-discussed with the daughter and she confirmed this. She was also seen by palliative care at [facility] Rx per ID She should be on dex 4 mg po TID, with glucose monitoring and PPI support. d/w Hospitalist
[2017-04-02] MEDS: INSULIN (NOVOLOG) ASPART 100 UNITS/ML 10ML VIAL SQ SCH ×3 (14:32→18:41)
--- NOTE | 2017-04-02 16:10 | PN ---
Physical Exam: SUBJECTIVE: Patient seen and examined. She has no active complaints, daughter at bedside, oncology states home hospice referral is scheduled for 04/04 by [facility] OBJECTIVE: Vital Signs Period Temp Pulse Resp BP Sys/[place] Pulse Ox Last 24 Hr 98.0 F-98.4 F 70-84 18-20 133-145/78-87 97 PE Neuro: alert, awake, oriented to person, hospital, daughter (thinks she is at [facility]) b/l upper ext paralysis, RLE 4/5, LLE paralysis Pulm: clear with fine crackles CV: s1 s2 rrr no mrg Abd: s nt nd +bs Ext: warm, +1 pitting le edema Laboratory Results - last 24 hr 04/01/17 04/01/17 04/02/17 20:50 22:09 05:35 WBC RBC Hgb Hct MCV MCH MCHC RDW Plt Count MPV Total Counted Neutrophils % Neutrophils % (Manual) Band Neuts % (Manual) Lymphocytes % Lymphocytes % (Manual) Monocytes % (Manual) Sodium 131 L Potassium 4.4 Chloride 94 L Carbon Dioxide 26 Anion Gap 11 BUN 19 H Creatinine 0.6 Creat Clearance w eGFR > 60 POC Glucometer 360 Random Glucose 236 H D Lactic Acid 1.3 Calcium 8.7 Total Bilirubin 0.6 D AST 27 D ALT 108 H D Alkaline Phosphatase 134 H D Creatine Kinase 57 Troponin I 0.04 Total Protein 5.7 L Albumin 2.7 L Urine Color Urine Appearance Urine pH Ur Specific [place] Urine Protein Urine Glucose (UA) Urine Ketones Urine Blood Urine Nitrite Urine Bilirubin Urine Urobilinogen Urine RBC Urine WBC Ur Epithelial Cells Urine Mucus 04/02/17 04/02/17 04/02/17 05:35 05:35 06:28 WBC 14.9 H RBC 4.44 Hgb 13.4 Hct 39.8 MCV 89.7 MCH 30.3 MCHC 33.7 RDW 16.0 H Plt Count 257 MPV 6.9 L Total Counted 100 Neutrophils % No Result Required. Neutrophils % (Manual) 76 Band Neuts % (Manual) 1 Lymphocytes % No Result Required. Lymphocytes % (Manual) 8 D Monocytes % (Manual) 11 H D Sodium Potassium Chloride Carbon Dioxide Anion Gap BUN Creatinine Creat Clearance w eGFR POC Glucometer 219 Random Glucose Lactic Acid 2.8 H* Calcium Total Bilirubin AST ALT Alkaline Phosphatase Creatine Kinase Troponin I Total Protein Albumin Urine Color Urine Appearance Urine pH Ur Specific [place] Urine Protein Urine Glucose (UA) Urine Ketones Urine Blood Urine Nitrite Urine Bilirubin Urine Urobilinogen Urine RBC Urine WBC Ur Epithelial Cells Urine Mucus Active Medications Generic Name Dose Route Start Last Admin Trade Name Kaz PRN Reason Stop Dose Admin Acetaminophen 650 mg 04/01/17 05:24 Tylenol - PO Q4H PRN FEVER OR PAIN Atorvastatin Calcium 20 mg 04/01/17 22:00 04/01/17 22:18 Lipitor - PO 20 mg HS DEBORAH Administration Dexamethasone 4 mg 04/02/17 22:00 Decadron - PO TID DEBORAH Docusate Sodium 300 mg 04/01/17 22:00 04/01/17 22:18 Colace - PO 300 mg HS DEBORAH Administration Sodium Chloride 1,000 mls @ 100 mls/hr 04/01/17 15:30 04/01/17 17:00 Normal Saline - IV 100 mls/hr ASDIR DEBORAH Administration Ceftriaxone Sodium 2 gm/ 100 mls @ 200 mls/hr 04/02/17 10:00 04/02/17 11:43 Dextrose IVPB 200 mls/hr DAILY DEBORAH Administration Insulin Aspart 1 vial 04/01/17 07:00 04/02/17 13:54 Novolog Vial Sliding Scale - SQ Not Given ACHS [facility] Protocol Insulin Aspart 8 units 04/02/17 13:38 04/02/17 14:32 Novolog Vial SQ 8 units TIDAC DEBORAH Administration Insulin Detemir 36 units 04/01/17 22:00 04/01/17 22:18 Levemir Vial SQ 36 units HS DEBORAH Administration Levetiracetam 500 mg 04/01/17 10:00 04/02/17 10:03 Keppra - PO 500 mg BID DEBORAH Administration Lisinopril 5 mg 04/02/17 10:00 04/02/17 10:03 Prinivil PO 5 mg DAILY DEBORAH Administration Morphine Sulfate 2 mg 04/01/17 12:51 Morphine Injection - IVPUSH Q4H PRN PAIN Ondansetron HCl 8 mg 04/01/17 22:00 04/02/17 10:03 Zofran - PO 8 mg BID DEBORAH Administration Pantoprazole Sodium 40 mg 04/01/17 10:00 04/02/17 10:03 Protonix - PO 40 mg DAILY DEBORAH Administration Senna 1 tab 04/01/17 22:00 04/01/17 22:18 Senna - PO 1 tab HS DEBORAH Administration Timolol Maleate 1 drop 04/01/17 10:00 04/02/17 11:43 Timoptic 0.5% OU 1 drop BID DEBORAH Administration Microbiology 04/01/17 10:30 Blood - Peripheral Venous Blood Culture - Preliminary NO GROWTH OBTAINED AFTER 24 HOURS, INCUBATION TO CONTINUE FOR 4 DAYS. 04/01/17 10:30 Blood - Peripheral Venous Blood Culture - Preliminary NO GROWTH OBTAINED AFTER 24 HOURS, INCUBATION TO CONTINUE FOR 4 DAYS. Imaging: - Chest CT w/o contrast: large residual/recurrence with microvascular ischemic changes MRI 03/18/2017 1. Progression of known GBM with enlargement of the mass in the right parietal lobe extending to the corpus callosum and septum pellucidum as well as enlargement of additional sites of disease in the right insula and right frontal operculum. 2. Mild bilateral white matter hyperintensity within the centrum semiovale consistent with post treatment encephalopathy. 3. Decreased edema within the white matter adjacent to the tumor compared to prior. Assessment: 56 year old with pmhx of glioblastoma multiforme s/p surgery (right parietal craniotomy at [facility] November 2016) with chemo and radiation, CVA with left sided paralysis, hyperglycemia and UTI admitted with shortness of breath and hematuria. Plan: 1. Atypical CP - Resolved - Trops flat - No EKG changes 2. Glioblastoma multiforme s/p surgery (right parietal craniotomy at [facility]) - MRI done today, previous MRI results above - Decadron 4mg TID - Hold ASA - No invasive procedures going forward per daughter - Continue kera - Home hospice referral set for 04/04 by [facility], goal to dc pt by then - Protonix daily 3. UTI - Ceftrixone 2gm daily - Awaiting urine cx - Lactic acid level in AM - Continue fluids - D/w ID, if cx return and LA down can dc home with PO 4. Hyperglycemia - Likely secondary to chronic steriods - Continue Levemir and Novolog 5. HTN - Lisinopril 5mg daily 6. HLD - Lipitor HS 7. Hyponatremia - Corrected is 133 8. Prophylaxis - Hold anticoag secondary to microvascular changes, on SCD Visit type - Emergency Visit Emergency Visit: Yes ED Registration Date: 04/01/17 Care time: The patient presented to the Emergency Department on the above date and was hospitalized for further evaluation of their emergent condition. - New Patient This patient is new to me today: Yes Date on this admission: 04/02/17 - Critical Care Critical Care patient: No
--- NOTE | 2017-04-02 16:32 | PN ---
Progress Note, Physician History of Present Illness: stable no new events - Current Medication List Current Medications: Active Medications Acetaminophen (Tylenol -) 650 mg PO Q4H PRN PRN Reason: FEVER OR PAIN Atorvastatin Calcium (Lipitor -) 20 mg PO HS [facility] Last Admin: 04/01/17 22:18 Dose: 20 mg Dexamethasone (Decadron -) 4 mg PO TID [facility] Docusate Sodium (Colace -) 300 mg PO HS [facility] Last Admin: 04/01/17 22:18 Dose: 300 mg Sodium Chloride (Normal Saline -) 1,000 mls @ 100 mls/hr IV ASDIR [facility] Last Admin: 04/01/17 17:00 Dose: 100 mls/hr Ceftriaxone Sodium 2 gm/ (Dextrose) 100 mls @ 200 mls/hr IVPB DAILY [facility] Last Admin: 04/02/17 11:43 Dose: 200 mls/hr Insulin Aspart (Novolog Vial Sliding Scale -) 1 vial SQ ACHS [facility] PRN Reason: Protocol Last Admin: 04/02/17 13:54 Dose: Not Given Insulin Aspart (Novolog Vial) 8 units SQ TIDAC [facility] Last Admin: 04/02/17 14:32 Dose: 8 units Insulin Detemir (Levemir Vial) 36 units SQ HS [facility] Last Admin: 04/01/17 22:18 Dose: 36 units Levetiracetam (Keppra -) 500 mg PO BID [facility] Last Admin: 04/02/17 10:03 Dose: 500 mg Lisinopril (Prinivil) 5 mg PO DAILY [facility] Last Admin: 04/02/17 10:03 Dose: 5 mg Morphine Sulfate (Morphine Injection -) 2 mg IVPUSH Q4H PRN PRN Reason: PAIN Ondansetron HCl (Zofran -) 8 mg PO BID [facility] Last Admin: 04/02/17 10:03 Dose: 8 mg Pantoprazole Sodium (Protonix -) 40 mg PO DAILY [facility] Last Admin: 04/02/17 10:03 Dose: 40 mg Senna (Senna -) 1 tab PO HS [facility] Last Admin: 04/01/17 22:18 Dose: 1 tab Timolol Maleate (Timoptic 0.5%) 1 drop OU BID [facility] Last Admin: 04/02/17 11:43 Dose: 1 drop - Objective Vital Signs: Vital Signs Temperature 98.0 F 04/02/17 14:21 Pulse Rate 79 04/02/17 14:21 Respiratory Rate 20 04/02/17 14:21 Blood Pressure 145/85 04/02/17 14:21 O2 Sat by Pulse Oximetry (%) 97 04/01/17 20:51 Constitutional: Yes: No Distress, Calm Cardiovascular: Yes: Regular Rate and Rhythm Respiratory: Yes: Regular, CTA Bilaterally Gastrointestinal: Yes: Normal Bowel Sounds, Soft Extremities: Yes: WNL Neurological: Yes: Alert Psychiatric: Yes: Alert Labs: CBC, BMP 04/02/17 05:35 04/02/17 05:35 INR, PTT INR 0.96 (0.82-1.09) 04/01/17 06:40 Assessment/Plan looking at the patient and the history and the recurrence of the tumor--this itself could be causing the symptoms and also having new left side weakness also i am worried about uti patient also has high lactic acid r/o uti lt sided weakness dm glioblastoma lactic acidosis plan continue abx check wbc will await for urine cx rest as per primary team
[2017-04-02] MEDS: SODIUM CHLORIDE 1,000 ML IV SCH (17:19)
[2017-04-02] MEDS ORDERED: LACTULOSE 20 GM/30 ML UDC (FOR ORAL USE ONLY) PO PRN (18:41)
[2017-04-02] MEDS ORDERED: BISACODYL 5 MG TABLET.DR (FP) PO ONE ×2 (18:41→21:30)
[2017-04-02] MEDS: DOCUSATE SODIUM 100 MG CAPSULE (FP) PO SCH (21:35)
[2017-04-02] MEDS: SENNOSIDES 8.6MG TABLET (FP) PO SCH (21:35)
[2017-04-02] MEDS: ATORVASTATIN CA 20 MG TABLET (FP) PO SCH (21:35)
[2017-04-02] MEDS: INSULIN DETEMIR 100 UNITS/ML MDV SQ SCH (21:46)
[2017-04-03] MEDS: DEXAMETHASONE 4 MG TABLET (FP) PO SCH ×3 (06:36→21:07)
[2017-04-03] MEDS: INSULIN SLIDING SCALE (NOVOLOG) 1 VIAL SQ SCH ×4 (06:37→22:07)
[2017-04-03] MEDS: INSULIN (NOVOLOG) ASPART 100 UNITS/ML 10ML VIAL SQ SCH ×3 (06:37→17:41)
[2017-04-03 07:59] LABS: MCH 30.4 pg (25.7-33.7); MCHC 33.5 g/dl (32.0-36.0); MEAN CELL VOLUME 90.7 fl (80-96); MEAN PLT VOLUME 7.1 fl (7.5-11.1); PLATELET COUNT 241 K/MM3 (134-434); RDW 15.4 % (11.6-15.6); WHITE BLOOD COUNT 12.5 K/mm3 (4.0-10.0)
[2017-04-03] MEDS ORDERED: ONDANSETRON 4 MG TABLET PO ONE ×2 (08:12→20:18)
[2017-04-03] MEDS ORDERED: DEXTROSE 5%-WATER 100 ML IVPB ONE (08:14)
[2017-04-03 08:17] LABS: ANION GAP 10 (8-16); CALCIUM 8.2 mg/dL (8.5-10.1); CO2 29 mmol/L (21-32); CREATININE 0.5 mg/dL (0.55-1.02); GLUCOSE,RANDOM 281 mg/dL (74-106)
[2017-04-03] MEDS: levETIRAcetam 500 MG TABLET (FP) PO SCH ×2 (09:02→21:07)
[2017-04-03] MEDS: LISINOPRIL 5 MG TABLET (FP) PO SCH (09:02)
[2017-04-03] MEDS: PANTOPRAZOLE 40 MG TABLET (FP) PO SCH (09:02)
[2017-04-03] MEDS: ONDANSETRON 8 MG TABLET (FP) PO SCH ×2 (09:02→22:08)
[2017-04-03] MEDS: CEFTRIAXONE 2 GM in DEXTROSE 5%-WATER 100 ML IVPB SCH (09:02)
[2017-04-03] MEDS: TIMOLOL 0.5% OPHTHALMIC SOL 5 ML BOTTLE OU SCH ×2 (09:02→21:08)
--- NOTE | 2017-04-03 12:17 | PN ---
Progress Note, Physician History of Present Illness: Pt seen and examined. Medical records in EMR reviewed, events noted. Pt states she feels better. Has no specific complaints. - Current Medication List Current Medications: Active Medications Atorvastatin Calcium (Lipitor -) 20 mg PO HS [facility] Last Admin: 04/02/17 21:35 Dose: 20 mg Dexamethasone (Decadron -) 4 mg PO TID [facility] Last Admin: 04/03/17 06:36 Dose: 4 mg Docusate Sodium (Colace -) 300 mg PO HS [facility] Last Admin: 04/02/17 21:35 Dose: 300 mg Sodium Chloride (Normal Saline -) 1,000 mls @ 100 mls/hr IV ASDIR [facility] Last Admin: 04/02/17 17:19 Dose: 100 mls/hr Ceftriaxone Sodium 2 gm/ (Dextrose) 100 mls @ 200 mls/hr IVPB DAILY [facility] Last Admin: 04/03/17 09:02 Dose: 200 mls/hr Insulin Aspart (Novolog Vial Sliding Scale -) 1 vial SQ ACHS [facility] PRN Reason: Protocol Last Admin: 04/03/17 06:37 Dose: 6 units Insulin Aspart (Novolog Vial) 8 units SQ TIDAC [facility] Last Admin: 04/03/17 06:37 Dose: 8 units Insulin Detemir (Levemir Vial) 36 units SQ HS [facility] Last Admin: 04/02/17 21:46 Dose: 36 units Lactulose (Cephulac (Oral Use)) 20 gm PO PRN PRN PRN Reason: CONSTIPATION Levetiracetam (Keppra -) 500 mg PO BID [facility] Last Admin: 04/03/17 09:02 Dose: 500 mg Lisinopril (Prinivil) 5 mg PO DAILY [facility] Last Admin: 04/03/17 09:02 Dose: 5 mg Morphine Sulfate (Morphine Injection -) 2 mg IVPUSH Q4H PRN PRN Reason: PAIN Ondansetron HCl (Zofran -) 8 mg PO BID [facility] Last Admin: 04/03/17 09:02 Dose: 8 mg Pantoprazole Sodium (Protonix -) 40 mg PO DAILY [facility] Last Admin: 04/03/17 09:02 Dose: 40 mg Senna (Senna -) 1 tab PO HS [facility] Last Admin: 04/02/17 21:35 Dose: 1 tab Timolol Maleate (Timoptic 0.5%) 1 drop OU BID [facility] Last Admin: 04/03/17 09:02 Dose: 1 drop - Objective Vital Signs: Vital Signs Temperature 98.7 F 04/03/17 10:00 Pulse Rate 88 04/03/17 10:00 Respiratory Rate 20 04/03/17 10:00 Blood Pressure 131/79 04/03/17 10:00 O2 Sat by Pulse Oximetry (%) 98 04/03/17 10:00 Constitutional: Yes: No Distress, Calm Eyes: Yes: WNL Neck: Yes: WNL, Supple Cardiovascular: Yes: Regular Rate and Rhythm Respiratory: Yes: CTA Bilaterally Gastrointestinal: Yes: Normal Bowel Sounds, Soft Genitourinary: Yes: WNL Extremities: Yes: WNL Integumentary: Yes: WNL Neurological: Yes: Alert, Oriented Psychiatric: Yes: WNL Labs: CBC, BMP 04/03/17 05:30 04/03/17 05:30 INR, PTT INR 0.96 (0.82-1.09) 04/01/17 06:40 Microbiology 04/01/17 10:30 Blood Culture - Preliminary Blood - Peripheral Venous NO GROWTH OBTAINED AFTER 48 HOURS, INCUBATION TO CONTINUE FOR 3 DAYS. 04/01/17 10:30 Blood Culture - Preliminary Blood - Peripheral Venous NO GROWTH OBTAINED AFTER 48 HOURS, INCUBATION TO CONTINUE FOR 3 DAYS. 04/01/17 16:30 Urine Culture - Final Urine - Urine Clean Catch NO GROWTH OBTAINED - ....Imaging Chest X-ray: Report Reviewed Problem List - Problems (1) Elevated troponin Code(s): R74.8 - ABNORMAL LEVELS OF OTHER SERUM ENZYMES (2) History of craniotomy Code(s): Z98.890 - OTHER SPECIFIED POSTPROCEDURAL STATES (3) Weakness Code(s): R53.1 - WEAKNESS (4) Glioblastoma Code(s): C71.9 - MALIGNANT NEOPLASM OF BRAIN, UNSPECIFIED Assessment/Plan Glioblastoma multiforme s/p Rt parietal craniotomy, chemo/RT Leukocytosis, lactic acidosis Lt sided paralysis hyperglycemia, steroids - continue follow wbc, plan d/c antibiotics if remains stable - wbc with downward trend will follow up
--- NOTE | 2017-04-03 13:36 | PN ---
Physical Exam: SUBJECTIVE: Patient seen and examined. No acute complaints, slept well. OBJECTIVE: Vital Signs Period Temp Pulse Resp BP Sys/Bar[place]osa Pulse Ox Last 24 Hr 97.1 F-98.7 F 79-88 16-20 131-167/63-85 97-98 PE Neuro: alert, awake, oriented to self, upper extremity, LLE paralysis Pulm: CTAB CV: s1 s2 rrr no mrg Abd: s nt nd +bs Ext: warm, +1 pitting le edema Laboratory Results - last 24 hr 04/02/17 04/02/17 04/03/17 17:13 21:44 05:30 WBC 12.5 H RBC 4.26 Hgb 12.9 Hct 38.7 MCV 90.7 MCH 30.4 MCHC 33.5 RDW 15.4 Plt Count 241 MPV 7.1 L Sodium Potassium Chloride Carbon Dioxide Anion Gap BUN Creatinine POC Glucometer 286 317 Random Glucose Lactic Acid Calcium 04/03/17 04/03/17 04/03/17 05:30 05:30 06:32 WBC RBC Hgb Hct MCV MCH MCHC RDW Plt Count MPV Sodium 132 L Potassium 4.4 Chloride 93 L Carbon Dioxide 29 Anion Gap 10 BUN 23 H D Creatinine 0.5 L POC Glucometer 256 Random Glucose 281 H Lactic Acid 2.0 Calcium 8.2 L Active Medications Generic Name Dose Route Start Last Admin Trade Name Freq PRN Reason Stop Dose Admin Atorvastatin Calcium 20 mg 04/01/17 22:00 04/02/17 21:35 Lipitor - PO 20 mg HS [facility] Administration Dexamethasone 4 mg 04/02/17 22:00 04/03/17 13:05 Decadron - PO 4 mg TID [facility] Administration Docusate Sodium 300 mg 04/01/17 22:00 04/02/17 21:35 Colace - PO 300 mg HS [facility] Administration Ceftriaxone Sodium 2 gm/ 100 mls @ 200 mls/hr 04/02/17 10:00 04/03/17 09:02 Dextrose IVPB 200 mls/hr DAILY [facility] Administration Sodium Chloride 1,000 mls @ 83 mls/hr 04/03/17 13:24 Normal Saline - IV ASDIR [facility] Insulin Aspart 1 vial 04/01/17 07:00 04/03/17 12:22 Novolog Vial Sliding Scale - SQ 8 units ACHS [facility] Administration Protocol Insulin Aspart 8 units 04/02/17 13:38 04/03/17 12:22 Novolog Vial SQ 8 units TIDAC [facility] Administration Insulin Detemir 36 units 04/01/17 22:00 04/02/17 21:46 Levemir Vial SQ 36 units HS [facility] Administration Lactulose 20 gm 04/02/17 18:41 Cephulac (Oral Use) PO PRN PRN CONSTIPATION Levetiracetam 500 mg 04/01/17 10:00 04/03/17 09:02 Keppra - PO 500 mg BID [facility] Administration Lisinopril 5 mg 04/02/17 10:00 04/03/17 09:02 Prinivil PO 5 mg DAILY [facility] Administration Morphine Sulfate 2 mg 04/01/17 12:51 Morphine Injection - IVPUSH Q4H PRN PAIN Ondansetron HCl 8 mg 04/01/17 22:00 04/03/17 09:02 Zofran - PO 8 mg BID [facility] Administration Pantoprazole Sodium 40 mg 04/01/17 10:00 04/03/17 09:02 Protonix - PO 40 mg DAILY [facility] Administration Senna 1 tab 04/01/17 22:00 04/02/17 21:35 Senna - PO 1 tab HS [facility] Administration Timolol Maleate 1 drop 04/01/17 10:00 04/03/17 09:02 Timoptic 0.5% OU 1 drop BID [facility] Administration Microbiology 04/01/17 10:30 Blood - Peripheral Venous Blood Culture - Preliminary NO GROWTH OBTAINED AFTER 48 HOURS, INCUBATION TO CONTINUE FOR 3 DAYS. 04/01/17 10:30 Blood - Peripheral Venous Blood Culture - Preliminary NO GROWTH OBTAINED AFTER 48 HOURS, INCUBATION TO CONTINUE FOR 3 DAYS. 04/01/17 16:30 Urine - Urine Clean Catch Urine Culture - Final NO GROWTH OBTAINED Imaging: - Chest CT w/o contrast: large residual/recurrence with microvascular ischemic changes MRI 03/18/2017 1. Progression of known GBM with enlargement of the mass in the right parietal lobe extending to the corpus callosum and septum pellucidum as well as enlargement of additional sites of disease in the right insula and right frontal operculum. 2. Mild bilateral white matter hyper intensity within the centrum semiovale consistent with post treatment encephalopathy. 3. Decreased edema within the white matter adjacent to the tumor compared to prior. Assessment: 56 year old with pmhx of glioblastoma multiforme s/p surgery (right parietal craniotomy at [facility] November 2016) with chemo and radiation, CVA with left sided paralysis, hyperglycemia and UTI admitted with shortness of breath and hematuria. Plan: 1. Atypical CP - Resolved; less likely ACS - Trops flat 2. Glioblastoma multiforme s/p surgery (right parietal craniotomy at [facility]) - MRI done 04/02, previous MRI results above - Decadron 4mg TID - Hold ASA - No invasive procedures going forward per daughter - Continue kera - Home hospice referral set for 04/04 by brady, goal to dc pt by then - Protonix daily 3. UTI - Urine cx no growth - Ceftrixone 2gm daily, stop - Lactic acid decreasing - Decrease fluids 83cc/hr - If wbc decrease stop abx 4. Hyperglycemia - Likely secondary to chronic steroids - Continue Levemir and Novolog 5. HTN - Lisinopril 5mg daily 6. HLD - Lipitor HS 7. Prophylaxis - Hold anticoag secondary to microvascular changes, on SCD Visit type - Emergency Visit Emergency Visit: Yes ED Registration Date: 04/01/17 Care time: The patient presented to the Emergency Department on the above date and was hospitalized for further evaluation of their emergent condition. - New Patient This patient is new to me today: No - Critical Care Critical Care patient: No
[2017-04-03] MEDS: SODIUM CHLORIDE 1,000 ML IV SCH (14:00)
[2017-04-03] MEDS: morphine CARPU-JECT 2 MG/1 ML DISP.SYRIN IVPUSH PRN (20:39)
[2017-04-03] MEDS: INSULIN DETEMIR 100 UNITS/ML MDV SQ SCH (21:07)
[2017-04-03] MEDS: ATORVASTATIN CA 20 MG TABLET (FP) PO SCH (21:07)
[2017-04-03] MEDS: DOCUSATE SODIUM 100 MG CAPSULE (FP) PO SCH (21:07)
[2017-04-03] MEDS: SENNOSIDES 8.6MG TABLET (FP) PO SCH (21:08)
[2017-04-03] MEDS ORDERED: PT OWN MED DRAWER 7, Y5N ONE (22:22)
[2017-04-04] MEDS: DEXAMETHASONE 4 MG TABLET (FP) PO SCH ×4 (06:24→21:08)
[2017-04-04] MEDS: INSULIN (NOVOLOG) ASPART 100 UNITS/ML 10ML VIAL SQ SCH ×3 (06:24→18:03)
[2017-04-04] MEDS: INSULIN SLIDING SCALE (NOVOLOG) 1 VIAL SQ SCH ×4 (06:25→21:07)
[2017-04-04] MEDS: morphine CARPU-JECT 2 MG/1 ML DISP.SYRIN IVPUSH PRN ×2 (09:10→16:32)
[2017-04-04] MEDS ORDERED: DEXTROSE 5%-WATER 100 ML IVPB ONE (09:27)
[2017-04-04] MEDS: LISINOPRIL 5 MG TABLET (FP) PO SCH (09:52)
[2017-04-04] MEDS: PANTOPRAZOLE 40 MG TABLET (FP) PO SCH (09:52)
[2017-04-04] MEDS: levETIRAcetam 500 MG TABLET (FP) PO SCH ×2 (09:52→21:08)
[2017-04-04] MEDS: ONDANSETRON 4 MG TABLET PO SCH ×2 (09:53→21:08)
[2017-04-04] MEDS: TIMOLOL 0.5% OPHTHALMIC SOL 5 ML BOTTLE OU SCH ×2 (09:53→21:08)
[2017-04-04] MEDS: CEFTRIAXONE 2 GM in DEXTROSE 5%-WATER 100 ML IVPB SCH (09:54)
[2017-04-04 10:38] LABS: MCH 30.8 pg (25.7-33.7); MCHC 34.4 g/dl (32.0-36.0); MEAN CELL VOLUME 89.8 fl (80-96); MEAN PLT VOLUME 6.8 fl (7.5-11.1); PLATELET COUNT 272 K/MM3 (134-434); RDW 15.5 % (11.6-15.6); WHITE BLOOD COUNT 16.8 K/mm3 (4.0-10.0)
[2017-04-04 11:04] LABS: METAMYELOCYTE 2 % (0-2); MYELOCYTE 2 % (0-2); PLATELET ESTIMATE ADEQUATE (NORMAL); TOTAL CELLS COUNTED 100
[2017-04-04] MEDS: SODIUM CHLORIDE 1,000 ML IV SCH (12:49)
--- NOTE | 2017-04-04 15:01 | PN ---
Physical Exam: SUBJECTIVE: Patient seen and examined. She has some L shoulder/neck pain, but is fine with Tylenol. She wants to go home. Daughter at bedside Events: - Low grade fever 99.6 OBJECTIVE: Vital Signs Period Temp Pulse Resp BP Sys/Barbosa Pulse Ox Last 24 Hr 98.1 F-99.6 F 75-110 16-20 128-148/78-98 98-98 PE Neuro: alert, awake, oriented, moving RUE Pulm: CTAB CV: s1 s2 rrr no mrg Abd: s nt nd +bs Ext: warm, +1 pitting le edema Msk: L neck tenderness Laboratory Results - last 24 hr 04/04/17 04/04/17 04/04/17 10:00 10:00 12:40 WBC 16.8 H D RBC 4.90 Hgb 15.1 D Hct 44.0 MCV 89.8 MCH 30.8 MCHC 34.4 RDW 15.5 Plt Count 272 MPV 6.8 L Total Counted 100 Neutrophils % No Result Required. Neutrophils % (Manual) 70 Band Neuts % (Manual) 2 D Lymphocytes % No Result Required. Lymphocytes % (Manual) 18 D Monocytes % (Manual) 6 Myelocytes % (Man) 2 Platelet Estimate Adequate Platelet Comment No clumping noted POC Glucometer 218 Lactic Acid 2.1 H* Active Medications Generic Name Dose Route Start Last Admin Trade Name [place] PRN Reason Stop Dose Admin Atorvastatin Calcium 20 mg 04/01/17 22:00 04/03/17 21:07 Lipitor - PO 20 mg HS [facility] Administration Dexamethasone 4 mg 04/02/17 22:00 04/03/17 21:07 Decadron - PO 4 mg TID [facility] Administration Docusate Sodium 300 mg 04/01/17 22:00 04/03/17 21:07 Colace - PO 300 mg HS [facility] Administration Ceftriaxone Sodium 2 gm/ 100 mls @ 200 mls/hr 04/02/17 10:00 04/04/17 09:54 Dextrose IVPB Not Given DAILY [facility] Sodium Chloride 1,000 mls @ 83 mls/hr 04/03/17 13:24 04/04/17 12:49 Normal Saline - IV 83 mls/hr ASDIR [facility] Administration Insulin Aspart 1 vial 04/01/17 07:00 04/04/17 12:48 Novolog Vial Sliding Scale - SQ 4 units ACHS [facility] Administration Protocol Insulin Aspart 8 units 04/02/17 13:38 04/04/17 12:48 Novolog Vial SQ 8 units TIDAC [facility] Administration Insulin Detemir 36 units 04/01/17 22:00 04/03/17 21:07 Levemir Vial SQ 36 units HS [facility] Administration Lactulose 20 gm 04/02/17 18:41 Cephulac (Oral Use) PO PRN PRN CONSTIPATION Levetiracetam 500 mg 04/01/17 10:00 04/04/17 09:52 Keppra - PO 500 mg BID [facility] Administration Lisinopril 5 mg 04/02/17 10:00 04/04/17 09:52 Prinivil PO 5 mg DAILY [facility] Administration Morphine Sulfate 2 mg 04/01/17 12:51 04/03/17 20:39 Morphine Injection - IVPUSH 2 mg Q4H PRN Administration PAIN Ondansetron HCl 8 mg 04/04/17 10:00 04/04/17 09:53 Zofran - PO Not Given BID [facility] Oxycodone HCl 5 mg 04/04/17 09:15 Roxicodone - PO Q4H PRN PAIN Pantoprazole Sodium 40 mg 04/01/17 10:00 04/04/17 09:52 Protonix - PO 40 mg DAILY [facility] Administration Senna 1 tab 04/01/17 22:00 04/03/17 21:08 Senna - PO 1 tab HS [facility] Administration Timolol Maleate 1 drop 04/01/17 10:00 04/04/17 09:53 Timoptic 0.5% OU 1 drop BID [facility] Administration Imaging: - Chest CT w/o contrast: large residual/recurrence with microvascular ischemic changes MRI 03/18/2017 1. Progression of known GBM with enlargement of the mass in the right parietal lobe extending to the corpus callosum and septum pellucidum as well as enlargement of additional sites of disease in the right insula and right frontal operculum. 2. Mild bilateral white matter hyper intensity within the centrum semiovale consistent with post treatment encephalopathy. 3. Decreased edema within the white matter adjacent to the tumor compared to prior. Assessment: 56 year old with pmhx of glioblastoma multiforme s/p surgery (right parietal craniotomy at [facility] November 2016) with chemo and radiation, CVA with left sided paralysis, hyperglycemia and UTI admitted with shortness of breath and hematuria. Plan: 1. Atypical CP - Resolved; less likely ACS - Trops flat 2. Glioblastoma multiforme s/p surgery (right parietal craniotomy at [facility]) - MRI done 04/02, previous MRI results above - Decadron 4mg TID - Hold ASA - No invasive procedures going forward per daughter - Continue keppra - Will need to reschedule home hospice - Protonix daily 3. UTI - Urine cx no growth - Has lost IV access today - Lactic acid mild increase, wbc increase - Awaiting ID recs 4. Hyperglycemia - Likely secondary to chronic steroids - Continue Levemir and Novolog 5. HTN - Lisinopril 5mg daily 6. HLD - Lipitor HS 7. Prophylaxis - Hold anticoag secondary to microvascular changes, on SCD Visit type - Emergency Visit Emergency Visit: Yes ED Registration Date: 04/01/17 Care time: The patient presented to the Emergency Department on the above date and was hospitalized for further evaluation of their emergent condition. - New Patient This patient is new to me today: No - Critical Care Critical Care patient: No
--- NOTE | 2017-04-04 15:14 | PN ---
Progress Note, Physician History of Present Illness: Pt complains of feeling generally tired but no other specific complaints. Denies shortness of breath/cough, abd pain/n/v/d, dysuria, rash. Wishes to go home. Had mild temp elevation to 99.6F earlier today. Currently afebrile. - Current Medication List Current Medications: Active Medications Atorvastatin Calcium (Lipitor -) 20 mg PO [facility] Last Admin: 04/03/17 21:07 Dose: 20 mg Dexamethasone (Decadron -) 4 mg PO TID [facility] Last Admin: 04/03/17 21:07 Dose: 4 mg Docusate Sodium (Colace -) 300 mg PO [facility] Last Admin: 04/03/17 21:07 Dose: 300 mg Ceftriaxone Sodium 2 gm/ (Dextrose) 100 mls @ 200 mls/hr IVPB DAILY [facility] Last Admin: 04/04/17 09:54 Dose: Not Given Sodium Chloride (Normal Saline -) 1,000 mls @ 83 mls/hr IV ASDIR [facility] Last Admin: 04/04/17 12:49 Dose: 83 mls/hr Insulin Aspart (Novolog Vial Sliding Scale -) 1 vial SQ ACHS [facility] PRN Reason: Protocol Last Admin: 04/04/17 12:48 Dose: 4 units Insulin Aspart (Novolog Vial) 8 units SQ TIDAC [facility] Last Admin: 04/04/17 12:48 Dose: 8 units Insulin Detemir (Levemir Vial) 36 units SQ HS [facility] Last Admin: 04/03/17 21:07 Dose: 36 units Lactulose (Cephulac (Oral Use)) 20 gm PO PRN PRN PRN Reason: CONSTIPATION Levetiracetam (Keppra -) 500 mg PO BID [facility] Last Admin: 04/04/17 09:52 Dose: 500 mg Lisinopril (Prinivil) 5 mg PO DAILY [facility] Last Admin: 04/04/17 09:52 Dose: 5 mg Morphine Sulfate (Morphine Injection -) 2 mg IVPUSH Q4H PRN PRN Reason: PAIN Last Admin: 04/03/17 20:39 Dose: 2 mg Ondansetron HCl (Zofran -) 8 mg PO BID [facility] Last Admin: 04/04/17 09:53 Dose: Not Given Oxycodone HCl (Roxicodone -) 5 mg PO Q4H PRN PRN Reason: PAIN Pantoprazole Sodium (Protonix -) 40 mg PO DAILY [facility] Last Admin: 04/04/17 09:52 Dose: 40 mg Senna (Senna -) 1 tab PO HS [facility] Last Admin: 04/03/17 21:08 Dose: 1 tab Timolol Maleate (Timoptic 0.5%) 1 drop OU BID [facility] Last Admin: 04/04/17 09:53 Dose: 1 drop - Objective Vital Signs: Vital Signs Temperature 98.1 F 04/04/17 14:30 Pulse Rate 97 H 04/04/17 14:30 Respiratory Rate 18 04/04/17 14:30 Blood Pressure 128/87 04/04/17 14:30 O2 Sat by Pulse Oximetry (%) 98 04/04/17 10:00 Constitutional: Yes: No Distress HENT: Yes: WNL Neck: Yes: Supple Cardiovascular: Yes: Regular Rate and Rhythm Respiratory: Yes: CTA Bilaterally Gastrointestinal: Yes: Normal Bowel Sounds, Soft Genitourinary: Yes: WNL Extremities: Yes: WNL Integumentary: Yes: WNL Neurological: Yes: Alert, Oriented Psychiatric: Yes: WNL Labs: CBC, BMP 04/04/17 10:00 04/03/17 05:30 INR, PTT INR 0.96 (0.82-1.09) 04/01/17 06:40 Abnormal Lab Results 04/04/17 04/04/17 10:00 10:00 WBC 16.8 H D MPV 6.8 L Lactic Acid 2.1 H* Lactic Acid - 2.1 Microbiology 04/01/17 10:30 Blood Culture - Preliminary Blood - Peripheral Venous NO GROWTH OBTAINED AFTER 72 HOURS, INCUBATION TO CONTINUE FOR 2 DAYS. 04/01/17 10:30 Blood Culture - Preliminary Blood - Peripheral Venous NO GROWTH OBTAINED AFTER 72 HOURS, INCUBATION TO CONTINUE FOR 2 DAYS. Problem List - Problems (1) Elevated troponin Code(s): R74.8 - ABNORMAL LEVELS OF OTHER SERUM ENZYMES (2) History of craniotomy Code(s): Z98.890 - OTHER SPECIFIED POSTPROCEDURAL STATES (3) Weakness Code(s): R53.1 - WEAKNESS (4) Glioblastoma Code(s): C71.9 - MALIGNANT NEOPLASM OF BRAIN, UNSPECIFIED Assessment/Plan Glioblastoma multiforme s/p Rt parietal craniotomy, chemo/RT Leukocytosis, lactic acidosis Lt sided paralysis hyperglycemia, steroids - temp mildly elevated today, continue monitor - wbc increased from yesterday suggest continue current antibiotic for now repeat blood cultures send cbc in a.m.
[2017-04-04] MEDS ORDERED: morphine CARPU-JECT 4 MG/1 ML DISP.SYRIN ONE (16:30)
[2017-04-04] MEDS: SENNOSIDES 8.6MG TABLET (FP) PO SCH (21:08)
[2017-04-04] MEDS: ATORVASTATIN CA 20 MG TABLET (FP) PO SCH (21:08)
[2017-04-04] MEDS: INSULIN DETEMIR 100 UNITS/ML MDV SQ SCH (21:08)
[2017-04-04] MEDS: DOCUSATE SODIUM 100 MG CAPSULE (FP) PO SCH (21:08)
[2017-04-05] MEDS ORDERED: morphine CARPU-JECT 4 MG/1 ML DISP.SYRIN ONE ×2 (00:12→04:22)
[2017-04-05] MEDS: morphine CARPU-JECT 2 MG/1 ML DISP.SYRIN IVPUSH PRN ×2 (00:45→04:26)
[2017-04-05] MEDS: INSULIN (NOVOLOG) ASPART 100 UNITS/ML 10ML VIAL SQ SCH ×3 (06:12→17:36)
[2017-04-05] MEDS: INSULIN SLIDING SCALE (NOVOLOG) 1 VIAL SQ SCH ×3 (06:12→17:36)
[2017-04-05] MEDS ORDERED: INSULIN (NOVOLOG MIX 70/30) 100 UNITS/ML MDV SQ ONE (06:16)
[2017-04-05] MEDS ORDERED: INSULIN (NOVOLOG) ASPART 100 UNITS/ML 10ML VIAL ONE (06:16)
[2017-04-05] MEDS ORDERED: INSULIN DETEMIR 100 UNITS/ML MDV SQ ONE (06:16)
[2017-04-05 06:54] LABS: MCH 30.3 pg (25.7-33.7); MCHC 33.4 g/dl (32.0-36.0); MEAN CELL VOLUME 90.8 fl (80-96); PLATELET COUNT 265 K/MM3 (134-434); RDW 15.9 % (11.6-15.6); WHITE BLOOD COUNT 13.7 K/mm3 (4.0-10.0)
[2017-04-05] MEDS: DEXAMETHASONE 4 MG TABLET (FP) PO SCH ×2 (08:20→14:53)
[2017-04-05 08:54] LABS: METAMYELOCYTE 4 % (0-2); MYELOCYTE 5 % (0-2); PLATELET ESTIMATE ADEQUATE (NORMAL); TOTAL CELLS COUNTED 100
[2017-04-05] MEDS ORDERED: DEXTROSE 5%-WATER 100 ML IVPB ONE ×2 (09:30→09:35)
[2017-04-05] MEDS: oxyCODONE HCL 5 MG TABLET PO PRN ×2 (09:32→15:45)
[2017-04-05] MEDS: LISINOPRIL 5 MG TABLET (FP) PO SCH (09:32)
[2017-04-05] MEDS: levETIRAcetam 500 MG TABLET (FP) PO SCH (09:33)
[2017-04-05] MEDS: CEFTRIAXONE 2 GM in DEXTROSE 5%-WATER 100 ML IVPB SCH (09:34)
[2017-04-05] MEDS: PANTOPRAZOLE 40 MG TABLET (FP) PO SCH (09:34)
[2017-04-05] MEDS: TIMOLOL 0.5% OPHTHALMIC SOL 5 ML BOTTLE OU SCH (09:36)
[2017-04-05] MEDS: ONDANSETRON 4 MG TABLET PO SCH (09:38)
--- NOTE | 2017-04-05 12:09 | PN ---
Progress Note, Physician History of Present Illness: patient stable no issues daughter in room - Current Medication List Current Medications: Active Medications Atorvastatin Calcium (Lipitor -) 20 mg PO HS [facility] Last Admin: 04/04/17 21:08 Dose: 20 mg Dexamethasone (Decadron -) 4 mg PO TID [facility] Last Admin: 04/05/17 08:20 Dose: 4 mg Docusate Sodium (Colace -) 300 mg PO HS [facility] Last Admin: 04/04/17 21:08 Dose: 300 mg Ceftriaxone Sodium 2 gm/ (Dextrose) 100 mls @ 200 mls/hr IVPB DAILY [facility] Last Admin: 04/05/17 09:34 Dose: 200 mls/hr Sodium Chloride (Normal Saline -) 1,000 mls @ 83 mls/hr IV ASDIR [facility] Last Admin: 04/04/17 12:49 Dose: 83 mls/hr Insulin Aspart (Novolog Vial Sliding Scale -) 1 vial SQ ACHS [facility] PRN Reason: Protocol Last Admin: 04/05/17 11:51 Dose: 4 units Insulin Aspart (Novolog Vial) 8 units SQ TIDAC [facility] Last Admin: 04/05/17 11:51 Dose: 8 units Insulin Detemir (Levemir Vial) 36 units SQ HS [facility] Last Admin: 04/04/17 21:08 Dose: 36 units Lactulose (Cephulac (Oral Use)) 20 gm PO PRN PRN PRN Reason: CONSTIPATION Levetiracetam (Keppra -) 500 mg PO BID [facility] Last Admin: 04/05/17 09:33 Dose: 500 mg Lisinopril (Prinivil) 5 mg PO DAILY [facility] Last Admin: 04/05/17 09:32 Dose: 5 mg Morphine Sulfate (Morphine Injection -) 2 mg IVPUSH Q4H PRN PRN Reason: PAIN Last Admin: 04/05/17 04:26 Dose: 2 mg Ondansetron HCl (Zofran -) 8 mg PO BID [facility] Last Admin: 04/05/17 09:38 Dose: Not Given Oxycodone HCl (Roxicodone -) 5 mg PO Q4H PRN PRN Reason: PAIN Last Admin: 04/05/17 09:32 Dose: 5 mg Pantoprazole Sodium (Protonix -) 40 mg PO DAILY [facility] Last Admin: 04/05/17 09:34 Dose: 40 mg Senna (Senna -) 1 tab PO HS [facility] Last Admin: 04/04/17 21:08 Dose: 1 tab Timolol Maleate (Timoptic 0.5%) 1 drop OU BID [facility] Last Admin: 04/05/17 09:36 Dose: 1 drop - Objective Vital Signs: Vital Signs Temperature 98.1 F 04/05/17 09:00 Pulse Rate 81 04/05/17 09:00 Respiratory Rate 20 04/05/17 09:00 Blood Pressure 140/85 04/05/17 09:00 O2 Sat by Pulse Oximetry (%) 97 04/05/17 09:00 Constitutional: Yes: No Distress, Calm Cardiovascular: Yes: Regular Rate and Rhythm Respiratory: Yes: Regular, CTA Bilaterally Gastrointestinal: Yes: Normal Bowel Sounds, Soft Musculoskeletal: Yes: WNL Extremities: Yes: WNL Neurological: Yes: Alert, Oriented Psychiatric: Yes: Alert, Oriented Labs: CBC, BMP 04/05/17 06:20 04/03/17 05:30 INR, PTT INR 0.96 (0.82-1.09) 04/01/17 06:40 Assessment/Plan uti lt sided weakness dm glioblastoma lactic acidosis plan continue abx if patient blood cx are negative patient can go home does not need any more abx
[2017-04-05] MEDS: SODIUM CHLORIDE 1,000 ML IV SCH (14:54)
--- NOTE | 2017-04-05 16:31 | DS ---
Physical Exam: SUBJECTIVE: Patient seen and examined OBJECTIVE: Vital Signs Period Temp Pulse Resp BP Sys/[place] Pulse Ox Last 24 Hr 97.6 F-98.2 F 78-110 18-20 109-140/63-85 97-98 PHYSICAL EXAM GENERAL: The patient is awake, alert, and fully oriented, in no acute distress. HEAD: Normal with no signs of trauma. EYES: PERRL, extraocular movements intact, sclera anicteric, conjunctiva clear. ENT: Ears normal, nares patent, oropharynx clear without exudates, moist mucous membranes. NECK: Trachea midline, full range of motion, supple. LUNGS: Breath sounds equal, clear to auscultation bilaterally, no wheezes, no crackles, no accessory muscle use. HEART: Regular rate and rhythm, S1, S2 without murmur, rub or gallop. ABDOMEN: Soft, nontender, nondistended, normoactive bowel sounds, no guarding, no rebound, no hepatosplenomegaly, no masses. EXTREMITIES: 2+ pulses, warm, well-perfused, no edema. NEUROLOGICAL: Cranial nerves II through XII grossly intact. Normal speech, gait not observed. PSYCH: Normal mood, normal affect. SKIN: Warm, dry, normal turgor, no rashes or lesions noted. LABS Laboratory Results - last 24 hr 04/04/17 04/04/17 04/05/17 17:41 21:06 06:08 WBC RBC Hgb Hct MCV MCH MCHC RDW Plt Count MPV Total Counted Neutrophils % Neutrophils % (Manual) Lymphocytes % Lymphocytes % (Manual) Monocytes % (Manual) Myelocytes % (Man) Platelet Estimate POC Glucometer 252 281 233 Lactic Acid 04/05/17 04/05/17 04/05/17 06:20 06:20 10:51 WBC 13.7 H RBC 4.53 Hgb 13.7 Hct 41.2 MCV 90.8 MCH 30.3 MCHC 33.4 RDW 15.9 H Plt Count 265 MPV 7.0 L Total Counted 100 Neutrophils % No Result Required. Neutrophils % (Manual) 69 Lymphocytes % No Result Required. Lymphocytes % (Manual) 16 Monocytes % (Manual) 6 Myelocytes % (Man) 5 H D Platelet Estimate Adequate POC Glucometer 243 Lactic Acid 2.0 HOSPITAL COURSE: Date of Admission:04/01/17 Date of Discharge: 04/05/17 Discharge Summary Reason For Visit: ELEVATED TROPONIN LEVEL Current Active Problems Elevated troponin (Acute) Glioblastoma (Acute) History of craniotomy (Acute) Vasogenic brain edema (Acute) Weakness (Acute) Condition: Stable - Instructions Diet, Activity, Other Instructions: Please return to the ED for any new, persistent, or worsening symptoms. Follow up with your PCP in 1 week Continue home medications as directed in discharge paper work Home hospice referral made, scheduled to come to your home tomorrow Referrals: STAFF,NOT ON [Primary Care Provider] - Kiya Church MD [Staff Physician] - Disposition: HOME - Home Medications Comprehensive Discharge Medication List: Ambulatory Orders Aspirin [ASA -] 81 mg PO DAILY 12/24/16 Butalb/Acetaminophen/Caffeine [Ozdpju-Slezrvoe-Irap 50-325-40] 1 each PO Q6H Levetiracetam 500 mg PO Q12H 12/24/16 Dexamethasone [Decadron -] 4 mg PO Q8H 03/12/17 Docusate Sodium [Colace -] 2 tab PO HS 03/12/17 Insulin Glargine,Hum.rec.anlog [Basaglar Kwikpen U-100] 36 units SCJ HS Insulin Lispro [Humalog Kwikpen U-100] 12 units SCJ TID 03/12/17 Lisinopril 5 mg PO DAILY 03/12/17 Ondansetron HCl [Zofran] 8 mg PO BID 03/12/17 Pantoprazole Sodium [Protonix] 40 mg PO DAILY 03/12/17 Sennosides [Senna] 1 tab PO HS 03/12/17 Temozolomide [Temodar (Nf) -] 140 mg PO DAILY 03/12/17 Timolol 0.5% [Timoptic 0.5%] 1 drop OU BID 03/12/17 Hydromorphone [Dilaudid -] 1 - 2 tab PO Q6H PRN 04/01/17 Oxycodone HCl/Acetaminophen [Percocet 5-325 mg Tablet] 1 tab PO Q6H PRN
[2017-04-05 19:10] VITALS: BP 112/68; PULSE 89; TEMP 98.7
== END 2017-04-05 18:00 | disposition home or self-care (01) | DRG 41 ==
LOC: JER 22:52 → JERBED 04-01 03:38 → J4W 04-01 09:13
PROVIDERS: ADMIT Internal Medicine; ATTEND Nurse Practitioner Acute Care
DX: C71.9 Malignant neoplasm of brain, unspecified (principal); G93.6 Cerebral edema; I69.354 Hemiplegia and hemiparesis following cerebral infarction affecting left non-dominant side; I10 Essential (primary) hypertension; K21.9 Gastro-esophageal reflux disease without esophagitis; F03.90 Unspecified dementia, unspecified severity, without behavioral disturbance, psychotic disturbance, mood disturbance, and anxiety; G93.89 Other specified disorders of brain; G40.802 Other epilepsy, not intractable, without status epilepticus; D72.828 Other elevated white blood cell count; R00.0 Tachycardia, unspecified; E87.1 Hypo-osmolality and hyponatremia; R74.0 Nonspecific elevation of levels of transaminase and lactic acid dehydrogenase [LDH]; N39.0 Urinary tract infection, site not specified; E09.65 Drug or chemical induced diabetes mellitus with hyperglycemia; T38.0X5S Adverse effect of glucocorticoids and synthetic analogues, sequela; R07.89 Other chest pain; E87.2 Acidosis; R31.9 Hematuria, unspecified; F41.0 Panic disorder [episodic paroxysmal anxiety]; K59.09 Other constipation; Z98.890 Other specified postprocedural states; Z79.4 Long term (current) use of insulin; Z99.3 Dependence on wheelchair
CPT/HCPCS: 36415; 70450-TC; 70553-TC; 71010-TC; 71275-TC; 80048; 80053; 80061; 80076; 81003; 81015; 82009; 83036; 83605; 83721; 83735; 83880; 84100; 84484; 85025; 85027; 85610; 85730; 87040; 87086; 93005; 93010; 99281-25; 99285-25